=== PATIENT | female | born 1965 | race Caucasian/White ===

== ENCOUNTER 2023-04-05 07:28 | Outpatient (RCR) | payer OTHER, SELFPAY ==
[2023-04-05 14:28] LABS: Basophils Absolute Auto 0.1 10^3/uL (0.0-0.1); Basophils Percent Auto 1.3 % (0.2-2.0); Eosinophils Absolute Auto 0.2 10^3/uL (0.0-0.7); Eosinophils Percent Auto 2.3 % (0.9-7.0); Hematocrit 38.5 % (36.0-48.0); Hemoglobin 11.2 g/dL (12.0-16.0); Immature Granulocytes Abs Auto 0.02 10^3/uL (0.00-0.03); Immature Granulocytes Pct Auto 0.3 % (0.0-0.5); Lymphocytes Absolute Auto 2.2 10^3/uL (1.2-3.8); Lymphocytes Percent Auto 32.1 % (20.5-60.0); Mean Corpuscular HGB Conc 29.1 g/dL (29.9-35.2); Mean Corpuscular Volume 75.5 fL (81.0-99.0); Mean Platelet Volume 12.2 fL (9.5-13.5); Monocytes Absolute Auto 0.8 10^3/uL (0.3-0.8); Monocytes Percent Auto 12.2 % (1.7-12.0); Neutrophils Absolute Auto 3.6 10^3/uL (1.4-6.5); Neutrophils Percent Auto 51.8 % (43.0-75.0); Platelet Count 285 10^3/uL (150-450); Red Cell Distribution Width 18.8 % (11.0-15.0); White Blood Count 6.9 10^3/uL (4.0-11.0)
[2023-04-05 15:14] LABS: Percent Iron Saturation 9.8 %
== END 2023-04-20 23:59 | disposition home or self-care (01) ==
LOC: INF 07:28
PROVIDERS: PCP Family Medicine; Visit Provider Internal Medicine Hematology & Oncology
DX: D50.9 Iron deficiency anemia, unspecified (principal); K90.9 Intestinal malabsorption, unspecified
CPT/HCPCS: 36415; 82728; 83540; 83550; 85025; G0463

== ENCOUNTER 2023-06-09 07:32 | Outpatient (RCR) | payer OTHER, SELFPAY ==
[2023-05-27 10:20] LABS: Basophils Absolute Auto 0.1 10^3/uL (0.0-0.1); Basophils Percent Auto 1.4 % (0.2-2.0); Eosinophils Absolute Auto 0.2 10^3/uL (0.0-0.7); Eosinophils Percent Auto 3.4 % (0.9-7.0); Hematocrit 38.4 % (36.0-48.0); Hemoglobin 11.6 g/dL (12.0-16.0); Immature Granulocytes Abs Auto 0.01 10^3/uL (0.00-0.03); Immature Granulocytes Pct Auto 0.2 % (0.0-0.5); Lymphocytes Absolute Auto 1.7 10^3/uL (1.2-3.8); Mean Corpuscular HGB Conc 30.2 g/dL (29.9-35.2); Mean Corpuscular Hemoglobin 23.6 pg (26.7-34.0); Mean Platelet Volume 12.6 fL (9.5-13.5); Monocytes Absolute Auto 0.5 10^3/uL (0.3-0.8); Monocytes Percent Auto 9.7 % (1.7-12.0); Neutrophils Percent Auto 54.3 % (43.0-75.0); Platelet Count 206 10^3/uL (150-450); Red Blood Count 4.92 10^6/uL (4.20-5.40); Red Cell Distribution Width 18.2 % (11.0-15.0); White Blood Count 5.6 10^3/uL (4.0-11.0)
[2023-05-27 11:13] LABS: Percent Iron Saturation 7.1 %
[2023-06-02 08:45] VITALS: BP 113/77; PULSE 71; RESP 18; TEMP 36.4; O2SAT 96
[2023-06-02] MEDS: FERUMOXYTOL 510 MG in 0.9 % SODIUM CHLORIDE 100 ML 234 MG IV (08:58)
--- NOTE | 2023-06-02 09:34 | PC.NURSE ---
Patient is here for feraheme infusion, she denies any complaints. Vitals obtained and stable, IV started in her right wrist with good blood return, she denies pain. Patient tolerated feraheme infusion well and denies any issues or concerns. She was discharged home ambulatory.
[2023-06-09 08:50] VITALS: BP 137/84; PULSE 86; RESP 18; TEMP 36.3; O2SAT 97
[2023-06-09] MEDS: FERUMOXYTOL 510 MG in 0.9 % SODIUM CHLORIDE 100 ML 234 MG IV (09:15)
--- NOTE | 2023-06-09 09:23 | PC.NURSE ---
0850 Arrival ambulatory with family, seated in chair 2. alert oriented. offers no complaints. IV initiated after 1 attempt per SALEEM Her and 2 attempt by myself, #24 RACF.
== END 2023-06-19 23:59 | disposition home or self-care (01) ==
LOC: INF 07:32
PROVIDERS: PCP Family Medicine; Visit Provider Internal Medicine Hematology & Oncology
DX: D50.9 Iron deficiency anemia, unspecified (principal); K90.9 Intestinal malabsorption, unspecified; I10 Essential (primary) hypertension; Z80.0 Family history of malignant neoplasm of digestive organs
CPT/HCPCS: 36415; 82728; 83540; 83550; 85025; 96365; G0463; Q0138

== ENCOUNTER 2023-06-28 13:59 | Outpatient (OUT) | payer OTHER, SELFPAY ==
--- OUTSIDE RECORDS SUMMARY | 2023-06-28 14:13 | XMS_ITS | CCD ---
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 Prasanth Walker Attending John Craft, Dr. Kellogg Referring Unavailable Jeanie Smith Unavailable JEANIE SMITH Referring Unavailable JEANIE SMITH Primary Care Unavailable JEANIE SMITH Referring Unavailable JEANIE SMITH Primary Care Unavailable JEANIE SMITH Referring Unavailable JEANIE SMITH Primary Care Unavailable JEANIE SMITH Primary Care Physician BENJAMIN AMBAR Primary Care Unavailable BENJAMIN AMBAR Referring Unavailable Real MADSEN Attending Unavailable BENJAMIN, AMBAR Primary Care Unavailable MESSI ORO Attending Unavailable Allergies Allergy Classification Reported Allergen(s) Allergy Type Date of Onset Reaction(s) Facility (1 source) No Alert Propensity to adverse reactions to drug 3 Dept. of Dermatology (1 source) No Known Medication Allergies; Translations: [No Known Medication Allergies] Propensity to adverse reactions (disorder) [facility] Repository Medications Current Medications Medication Drug Class(es) Dates Sig (Normalized) Sig (Original) lisinopril 30 mg oral tablet (5 sources) Angiotensin Converting Enzyme Inhibitor Start: 05-13-2023 lisinopril 30 mg Tab 15 mg = 0.5 tab(s), Oral, Daily, Refills(s) 0 Start Date: 05/13/23 Status: Ordered Lisinopril 30 MG 1/2 tablet once a day for 30 days Active methylPREDNISolone 4 mg oral tablet (1 source) Corticosteroid methylPREDNISolo ne 4 MG as directed Orally for 6 days Active valACYclovir 1000 mg oral tablet (1 source) Herpesvirus Nucleoside Analog DNA Polymerase Inhibitor, Herpes Simplex Virus Nucleoside Analog DNA Polymerase Inhibitor, Herpes Zoster Virus Nucleoside Analog DNA Polymerase Inhibitor take 1 tablet by mouth every eight hours valACYclovir HCl 1 GM 1 tablet Orally tid for 7 days Active (1 source) Problems Problem Classification Problem Date Documented Date Episodic/Chronic Allergic reactions (1 source) Dermatitis, unspecified Episodic Deficiency and other anemia (5 sources) Iron deficiency anemia; Translations: [Iron deficiency anemia, unspecified] Onset: 05-27-2023 Episodic Deficiency and other anemia (2 sources) Iron deficiency anemia, unspecified Episodic Essential hypertension (5 sources) Essential hypertension; Translations: [Essential (primary) hypertension] Chronic Menstrual disorders (1 source) Menorrhagia 05-27-2023 Chronic Other non-epithelial cancer of skin (2 sources) Basal cell carcinoma of skin of unspecified parts of face; Translations: [History of malignant basal cell neoplasm of skin] Onset: 10-26-2022 05-13-2023 Episodic Other nutritional; endocrine; and metabolic disorders (1 source) Body mass index 40+ - severely obese 05-27-2023 Chronic Other nutritional; endocrine; and metabolic disorders (1 source) Morbid obesity 05-27-2023 Chronic Other screening for suspected conditions (not mental disorders or infectious disease) (2 sources) Encounter for screening mammogram for malignant neoplasm of breast; Translations: [Encounter for screening mammogram for malignant neoplasm of breast] Onset: 04-20-2023 Episodic Other skin disorders (2 sources) Localized swelling, mass and lump, neck; Translations: [Localized swelling, mass and lump, neck] Onset: 04-20-2023 Episodic Viral infection (1 source) Zoster without complications Episodic Results Test Name Value Interpretation Reference Range Facil ity Consultation Noteon 06-06-19 Consultation Note [id number] .00TIFF Normal [facility] Consent for Procedure/Surger yon 05-31-2023 Consent for Procedure/Surgery [id number] .00TIFF [facility] Facesheeton 05-30-2023 Facesheet [id number] [facility] Ambulatory Visit Summaryon 0 05-27-2023 Ambulatory Visit Summary TEJA QUAN :1965 Visit Date:05/27/2023 Ambulatory Visit Instructions Your Diagnosis Iron deficiency anemia Your Care Team Attending Physician - MICKY EM, Real Wilkerson Primary Care Physician - SARAH EM, JEANIE Referring Physician - DR. AMBAR JOSEPH This Is Your Medications List Contact prescribing physician if questions or concerns lisinopril (lisinopril 30 mg Tab) Procedures Performed Colonoscopy (06/09/2018), Carpal tunnel release, Excision of basal cell carcinoma, Graft of skin. Discharge Vitals Heart Rate (Peripheral) 76 Respiratory Rate 16 Blood Pressure 116/78 Height 152.4 cm Height 60 in Weight 93.9 kg Weight 206.58 lb BMI 40.43 Medications What How Much When Instructions Unchanged lisinopril (lisinopril 30 mg Tab) 0.5 Tablets By Mouth Every day Contact prescribing physician if questions or concerns Medications and Immunizations Administered Not Given influenza virus vaccine, inactivated, Patient Refuses Allergies No Known Allergies No Known Medication Allergies Problems Ongoing - Any problem that you are currently receiving treatment for. BMI 40.0-44.9, adult Essential hypertension History of basal cell carcinoma Iron deficiency anemia Morbid obesity Historical - Any problem that you are no longer receiving treatment for. Menorrhagia Patient Survey You may receive a survey via text or e-mail asking about your office visit. Please share your experience with us by completing your survey. We appreciate your feedback and thank you for choosing us for your care. Normal [facility] MAMM SCREENING BILATERAL W C ripening room hand 04-20-2023 MAMM SCREENING BILATERAL W CAD MAMM SCREENING BILATERAL W CAD EXAM: MAMM SCREENING BILATERAL W CAD, 04/20/2023 7:45 AM CLINICAL INDICATIONS: Screening, Encounter for screening mammogram for malignant neoplasm of breast. COMPARISON: Mammograms dating back to 12/13/2018 TECHNIQUE: Bilateral digital tomosynthesis MLO and CC views of the breasts were obtained, with creation of synthetic 2D views. Computer aided detection was utilized. FINDINGS: There are scattered areas of fibroglandular density. There are no suspicious masses, calcifications, or areas of architectural distortions. IMPRESSION: No mammographic evidence of malignancy. BI-RADS: BI-RADS 1 - Negative Recommendation: Routine screening mammogram in 1 year. Finalized by Marissa Miller MD on 04/20/2023 11:28 AM 1 b MAMM [address] [facility] Physician Referralon 024 Physician Referral [id number] .00TIFF Normal [facility] Vital Signs Date Time Vital Sign Value Performing Clinician Facility 05-27-2023 13:14-0500 Blood Pressure Location [facility] [place] 05-27-2023 13:14-0500 Diastolic blood pressure 78 mm[Hg] QalendraL [facility] [place] 05-27-2023 13:14-0500 Heart rate 76 /min [facility] [place] 05-27-2023 13:14-0500 Respiratory rate 16 /min [facility] [place] 05-27-2023 13:14-0500 Systolic blood pressure 116 mm[Hg] [facility] 03-03-2023 11:00-0500 Body height 152.4 cm Jeanie Smith Other [facility] Other 03-03-2023 11:00-0500 Body mass index (BMI) [Ratio] 40.07 kg/m2 Jeanie Smith Other [facility] Other 03-03-2023 11:00-0500 Body weight 93.08 kg Jeanie Smith Other [facility] Other 03-03-2023 11:00-0500 Diastolic blood pressure 77 mm[Hg] Jeanie Smith Other [facility] Other 03-03-2023 11:00-0500 Systolic blood pressure 120 mm[Hg] Jeanie Smith Other [facility] Other 01-20-2023 14:00-0400 Body height 152.4 cm Jeanie Smith Other [facility] Other 01-20-2023 14:00-0400 Body mass index (BMI) [Ratio] 40.23 kg/m2 Jeanie Smith Other [facility] Other 01-20-2023 14:00-0400 Body weight 93.44 kg Jeanie Smith Other [facility] Other 01-20-2023 14:00-0400 Diastolic blood pressure 73 mm[Hg] Jeanie Smith Other [facility] Other 01-20-2023 14:00-0400 Systolic blood pressure 116 mm[Hg] Jeanie Smith Other [facility] Other 1965 23:00-0500 >na< Prasanth Walker Dept. of Dermato logy Encounters Encounter Date Encounter Type Care Provider Facility Start: 06-22-2023 End: 06-22-2023 ambulatory MESSI ORO Not Available Start: 05-27-2023 End: 05-28-2023 ambulatory AMBAR BENJAMIN Facility: [place] Start: 05-27-2023 End: 05-27-2023 Patient encounter procedure Real MADSEN [facility] Start: 04-20-2023 End: 04-21-[address] [facility] Start: 04-13-2023 End: 04-21-[address] [facility] Start: 04-08-2023 End: 04-08-2023 ambulatory Jeanie Smith Other [facility] Other Start: 04-08-2023 Telephone encounter Jeanie Smith [facility] Start: 04-05-2023 ambulatory AMBAR BENJAMIN Facility : [place] Start: 03-30-2023 End: 03-30-2023 ambulatory Jeanie Smith Other [facility] Other Start: 03-30-2023 Telephone encounter Jeanie Smith [facility] Start: 03-03-2023 End: 03-03-2023 ambulatory Jeanie Smith Other [facility] Other Start: 03-03-2023 Encounter for genera l adult medical examination without abnormal findings Jeanie Sarah [facility] Start: 03-03-2023 Periodic preventive med est patient 40-64yrs Jeanie Sarah [facility] Start: 01-20-2023 End: 01-20-2023 ambulatory Jeanie Smith Other [facility] Other Start: 01-20-2023 Office outpatient ne w 30 minutes Jeaniecharu Smith [facility] Start: 10-27-2022 Prasanth Walker [facility] of Dermatology Start: 10-26-[address] Prasanth Walker Facility:[id number] Procedures Date Procedure Procedure Detail Performing Clinician Start: 10-26-2022 Mohs micrographic h/ n/h/f/g 1st stage 5 blocks Prasanth Walker Start: 06-09-2018 Colonoscopy Real NI LL Decompression of med yaneth nerve Real MADSEN Excision of basal ce ll carcinoma Real MADSEN Comment on above: nose Skin graft material (substance) Real MADSEN Immunizations Immunization Date Immunization Notes Care Provider Umair nixon 1965 pneumococcal conjugate vaccine, 7 valent Prasanth Walker Dept. of Dermatology NEGATED: Highlighted row has not occurred!05-27-2023 influenza virus vaccine, unspecified formulation Real MADSEN [facility] [place] Payers Date Payer Category Payer Unknown [id number] 1965 Unknown [id number] 1965 Unknown [id number] 2.16.8 [id number] 1965 Unknown [id number] 2.16.8 [id number] 1965 Unknown [id number] 2.16.8 [id number] 1965 Unknown [id number] 2.16.8 [id number] 1965 Unknown [id number] 2.16.8 [id number] 1965 Unknown [id number] 2.16.84 [id number] Social History Date Type Detail Facility Start: 10-27-2022 Dept. of D ermatology Start: 1965 Sex Assigned At Female D ept[facility] of Dermatology Sex Assigned At [facility] Start: 05-27-2023 Tobacco smoking status Never s moked tobacco (finding) [facility] [place] Tobacco smoking status Never [facility] [place] Goals Date Patient Goal Desired Activity /State Functional Status Date Assessment Result Facility 05-27-2023 Functional Status N/A [facility] Clinical Notes 01-20-2023 to 05-27-2023 Note Date & Type Note Facility 05-27-2023 Note Chief Complaint consultation for anemia HPI Staff 58 year old female presents on consultation from Dr. Joseph for iron deficiency anemia. Labs completed 03/25 with HGB 5.7, HCT 11.4, ferritin 18. Denies abdominal or rectal pain. No rectal bleeding or change in bowel habits. Denies nausea or vomiting. No unexplained weight loss. Denies dizziness, lightheadedness or SOB. Last colonoscopy completed 2019-normal. Never had EGD in the past. No known family history of colon cancer. History of Present Illness 58 yo female with h/o htn, referred for iron deficiency anemia; patient with hb 5.7 in March with low iron; h/o menorrhagia, but not for some time, irregular periods; denies change in bowel habits or blood in stools, no abd complaints; last colonoscopy 2018 wnl; no abdominal operations; no asa or NSAID use; no GERD, dysphagia or early satiety; no h/o ulcer disease or melena; no FMHx of GI malignancy or IBD. no tobacco use. Review of Systems PHQ Score Initial Depression Screen Score: 0 SCORE ROS - Provider Constitutional: no fever, no sweats, no weight loss. Eyes: no glasses, no blurred vision, no visual loss. ENMT: no dentures, no hoarseness, no swallowing difficulties, no hearing loss, no ear infection(s), no nose bleeds. Cardiovascular: normal blood pressure, no chest pain, regular heartbeat, no heart murmur. Respiratory: no shortness of breath, no cough, no asthma, no wheezing. Gastrointestinal: no nausea, no vomiting, no diarrhea, no constipation, no blood in stool, no change in bowel habits, no abdominal pain, no hepatitis. Genitourinary: no kidney stones, no urine infection, no dysuria. Musculoskeletal: no pain, no weakness. Skin: no changing moles, no rash, no skin lumps. Neurologic: no seizures, no epilepsy, no headache. Psychiatric: no emotional or psychiatric problem. Heme/Lymph: no bleeding problems, no anemia, no blood clots, no transfusions. Allergy/Immunologic: no swollen lymph nodes/glands, no IV drug abuse. Other: Additional ROS info: Except as noted in the above Review of Systems and in the History of Present Illness, all other systems have been reviewed and are negative or noncontributory. Physical Exam Vitals & Measurements HR: 76(Peripheral) RR: 16 BP: 116/78 HT: 60 in HT: 152.4 cm WT: 93.9 kg WT: 206.58 lb BMI: 40.43 HEENT: normal conjunctiva, sclera clear, no scleral icterus, EOM intact, PERRLA, oral mucosa moist without lesions. Neck: trachea midline, no mass, symmetric, no thyromegaly or nodules, no adenopathy Respiratory: lungs CTA, respirations non labored. Cardiovascular: regular rate and rhythm, no murmur, no pedal edema or varicosities. Gastrointestinal: obese, soft, non distended, no tenderness, no masses, no palpable hernias, diastasis recti no, no hepatosplenomegaly; normal bs Lymphatic: no cervical adenopathy, no supraclavicular adenopathy. Musculoskeletal: normal gait, digits and nails without infection, nodes, cyanosis, clubbing. Skin: no rashes, no lesions, no ulcers, no subcutaneous nodules, induration. Psychiatric/Neuro: oriented to time, place, person, judgement normal, affect appropriate for age, insight intact, no focal deficits. Tests: labs reviewed review of old records completed , Discussed surgical options, risks, and possible complications with patient. Assessment/Plan 1. Iron deficiency anemia (D50.9: Iron deficiency anemia, unspecified) plan EGD and colonoscopy with anesthesia for further evaluation, informed consent obtained. Follow-up No qualifying data available Problem List/Past Medical History Ongoing BMI 40.0-44.9, adult Essential hypertension History of basal cell carcinoma Iron deficiency anemia Morbid obesity Historical Menorrhagia Procedure/Surgical History Colonoscopy (06/09/2018), Carpal tunnel release, Excision of basal cell carcinoma, Graft of skin. Medications lisinopril 30 mg Tab, 15 mg= 0.5 tab(s), Oral, Daily Allergies No Known Allergies No Known Medication Allergies Social History Alcohol - Denies Alcohol Use, 05/27/2023 Substance Abuse - Denies Substance Abuse, 05/27/2023 Tobacco Never (less than 100 in lifetime) Tobacco Use:. Never Smokeless Tobacco Use:., 05/27/2023 Family History Aneurysm: Mother and Brother. Immunizations Vaccine Date Status Comments influenza virus vaccine, inactivated - Not Given Patient Refuses [facility] Comment on above: Result Comment: Elec tronically Signed By: MICKY EM, Real Bentley\Date and Time Signed: 05/27/23 13:44 EST 04-21-2023 Note US SOFT TISS HEAD NE CK Procedure: US SOFT TISS HEAD NECK; Date of procedure: 04/20/2023 Reason for Exam: Palpable mass of neck; Comparison: None Technique: Real time sonography of the soft tissues of the neck in the region of concern performed. FINDINGS: Real-time sonographic evaluation reveals concern demonstrates a nonenlarged morphologically normal-appearing lymph node measuring 0.7 x 0.4 x 0.7 cm. IMPRESSION: Nonenlarged lymph node noted in the region of concern. No focal fluid collection. Finalized by Real Marina MD on 04/21/2023 9:[address] [facility] 03-30-2023 Evaluation note Encounter Date Diagnosis Assessment Notes Mar, Iron deficiency anemia, unspecified iron deficiency anemia type (ICD-10 - D50.9) [facility] Other [id number] Evaluation note* Encounter Date Diagnosis Assessment Notes Treatment Notes Treatment Clinical Notes Feb, Well adult exam (ICD-10 - Z00.00) We have discussed the necessity of following up with PCP regularly as well as specialists, as needed. Discussed F/U with dentistry and optometry at least yearly. Discussed all preventative measures/ cancer screenings as applicable to this patient. Emphasized the importance of a reduced fat, low carb diet to promote heart health and controlled blood sugars. Reviewed social history and ensured patient is safe within the home today. Pt denies any abuse of alcohol, nicotine, caffeine or recreational drugs. I have ensured patient is of stable mental and physical health today. We have discussed appropriate F/U schedule as well as blood work and vaccinations that apply. All questions answered and patient is sent home pleased, without concerns. Feb, Screening mammogram, encounter for (ICD-10 - Z12.31) Feb, Essential (primary) hypertension (ICD-10 - I10) GOAL: Maintain BP < 140/90. STATUS: achieved. TIME FRAME: Lifetime goal. Barriers: Non- identifed. Continue current regimen and a low Na+ diet. Regular CV exercise also encouraged. Feb, Iron deficiency anemia, unspecified iron deficiency anemia type (ICD-10 - D50.9) Pt historically unable to tolerate oral iron. Discussed potential heme referral for IV iron if her labs indicate low findings. Still has monthly periods. Encouraged regular followup w [employer] for assessment of this. 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 Agrees to US to assess LN v. salivary gland etiology. [facility] Other [id number] Evaluation note* Encounter Date Diagnosis Assessment Notes Treatment Notes Treatment Clinical Notes Jan, Varicella zoster (ICD-10 - B02.9) Discussed differential. Patient agrees to treatment for both shingles and possible allergic reaction. We agreed that the likelihood of shingles is lower however without renal issues, it would be safe to take Valtrex just to alleviate possible causes. Jan, Dermatitis (ICD-10 - L30.9) Patient understands to finish steroid pack as prescribed. Patient will call if problem persists. [facility] Other Evaluation + Plan note No data available for this section [facility] [place] Evaluation noteN/ADept. of Dermatology Evaluation noteNo [employer] [employer] Other History general Narrative - Reported* Type Description Date Medical History HTN [facility] Other Hospital Discharge instructions No data available for this section [facility] [place] Progress note No data available for this section [facility] [place] Reason for referral (narrative)* Name Reason for referral NA NA Dept. of Dermatology Summary Purpose Family History No Family History Records FoundNo Family History Records Found No data available for this section No Family History Records FoundNo Family History Records Found Advance Directives No Advanced Directives Records FoundNo Advanced Directives Records FoundNo Advanced Directives Records FoundNo Advanced Directives Records Found Reason for Referral Reason *FU 04/06 Dr. Maty sal - hx of iron def anemia, recent labs scanned in chart. had IV iron in the past. Diagnosis 1 Iron deficiency anem ia, unspecified iron deficiency anemia type (D50.9) Referral Organization [facility] guero Referring Provider First Name Jeanie Referring Provider Last Name Sarah Referring Provider Specialty Family [facility] cine Referred Organization [facility] Referred Provider AMBAR JOSEPH Referred Address [address] [place], [place],[address] Referred Provider Specialty Hematology Referral Priority Routine General Notes Mae Pendleton 07:51:36 AM >received today, notes locked, attachments made, referral faxed. Clinical Notes p: [phone] f: [phone] Additional Source Comments INFORMATION SOURCE (unrecogn ized section and content) DATE CREATED AUTHOR 10/28/2022 [facility] DATE CREATED AUTHOR AUTHOR'S ORGANIZ ATION 04/24/2023 [facility] DATE CREATED AUTHOR AUTHOR'S ORGANIZ ATION 06/07/2023 [facility] DATE CREATED AUTHOR AUTHOR'S ORGANIZ ATION 06/23/2023 [facility] dical Specialists EPIC REASON FOR VISIT (unrecogniz ed section and content) [facility] team informatio n (unrecognized section and content) Personnel Name: JEANIE SMITH MD Address: Address: [address] [place] [address] FOR RECORDS PERTAINING TO PATIENTS WHO ARE OR HAVE BEEN ENROLLED IN A CHEMICAL DEPENDENCY/SUBSTANCEABUSE PROGRAM, SOME INFORMATION MAY BE OMITTED. This clinical summary was aggregated from multiple sources. Caution should be exercised in using it in the provision of clinical care. This summary normalizes information from multiple sources, and as a consequence, information in this document may materially change the coding, format and clinical context of patient data. In addition, data may be omitted in some cases. CLINICAL DECISIONS SHOULD BE BASED ON THE PRIMARY CLINICAL RECORDS. [facility]. provides no warranty or guarantee of the accuracy or completeness of information in this document.
== END 2023-06-28 14:00 | disposition home or self-care (01) ==
LOC: PST 13:59
PROVIDERS: PCP Family Medicine; Visit Provider Surgery
DX: Z01.818 Encounter for other preprocedural examination (principal); D50.9 Iron deficiency anemia, unspecified

== ENCOUNTER 2023-07-06 08:47 | Day surgery (SDC) | payer OTHER, SELFPAY ==
--- NOTE | 2023-07-06 | OP_ITS ---
OPERATION DATE: 07/06/2023 PREOPERATIVE DIAGNOSIS: Iron deficiency anemia. POSTOPERATIVE DIAGNOSIS: Normal EGD and colonoscopy. PROCEDURE: EGD, colonoscopy to cecum. SURGEON: Real Weeks M.D. ANESTHESIA: Monitored anesthesia care. ESTIMATED BLOOD LOSS: Zero. INDICATIONS AND CONSENT: Patient is a 58-year-old female presents for evaluation of iron deficiency anemia. Indications, risks, benefits, alternatives of proceeding with EGD and colonoscopy were explained extensively to the patient, including the risks of bleeding, aspiration, esophageal/gastric/duodenal or colonic perforation or anesthetic complications. All of her questions were answered. Informed consent was obtained. PROCEDURE: Patient brought to the operating room, placed in the left lateral decubitus position. Monitored anesthesia care was provided. Bite block was placed in the patient?s mouth. Scope was inserted into the oropharynx. Under direct visualization, it was advanced into the esophagus, past the cricopharyngeus, down to the stomach. The stomach was insufflated with air. The pylorus was traversed down to the descending portion of the duodenum. There was no evidence of duodenitis or ulceration. There was no scarring within the pyloric channel. Scope was pulled back into the stomach and retroflexed. There was no significant hiatal hernia. The GE junction was noted at approximately 38 cm. There was no distal esophagitis or Vizcaino?s changes. Remainder of the esophagus was unremarkable. The scope was then withdrawn. Patient tolerated procedure well, was then positioned for colonoscopy. Rectal exam was performed, which showed no masses or blood. The scope was then inserted into the anal canal. Under direct visualization, it was advanced. It was advanced to the cecum where cecal markings were clearly identified. There was noted to be a good prep. Upon withdrawal of the scope, mucosal surfaces were carefully examined. There were no mass lesions or polyps. No inflammatory changes or ulcerations. No significant diverticulosis. The scope was retroflexed in the anal canal. There was no significant hemorrhoidal disease. The scope was then withdrawn. The patient tolerated procedure well, was sent to recovery room in good condition. Follow up colonoscopy should be in 10 years for screening. CC: Jeanie Lloyd M.D. LINDA
--- OUTSIDE RECORDS SUMMARY | 2023-07-06 08:52 | XMS_ITS | CCD ---
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 Name Role Phone Prasanth Walker Unavailable Unavailable [...] Medication Allergies] Propensity to adverse reactions (disorder) [facility] Repository Medications Current Medications Medication [...] Facil ity Consultation Noteon 06-06-19 Consultation Note [id number]#1 .00TIFF Normal [facility] Consent for Procedure/Surger yon 05-31-2023 Consent for Procedure/Surgery [id number]#1 .00TIFF [facility] Facesheeton 05-30-2023 Facesheet [id number]# 1.00TIFF [facility] Ambulatory Visit Summaryon 0 05-27-2023 Ambulatory Visit [...] for choosing us for your care. 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 stamping 04-20-2023 MAMM SCREENING BILATERAL W CAD MAMM [...] AM 1 b MAMM 1 YR Normal [facility] Physician Referralon 024 Physician Referral [id number]#1 .00TIFF Normal [facility] Vital Signs Date Time Vital Sign Value Performing Clinician Facility 05-27-2023 13:14-0500 Blood Pressure Location [employer] [facility] [place] 05-27-2023 13:14-0500 Diastolic blood pressure 78 mm[Hg] [employer] [facility] [place] 05-27-2023 13:14-0500 Heart rate 76 /min [employer] [facility] [place] 05-27-2023 13:14-0500 Respiratory rate 16 /min [employer] [facility] [place] 05-27-2023 13:14-0500 Systolic blood pressure 116 mm[Hg] [employer] [facility] 03-03-2023 11:00-0500 Body height 152.4 cm Jeanie Smith Other [employer] Other 03-03-2023 11:00-0500 Body mass index (BMI) [Ratio] 40.07 kg/m2 Jeanie Smith Other [employer] Other 03-03-2023 11:00-0500 Body weight 93.08 kg Jeanie Smith Other [employer] Other 03-03-2023 11:00-0500 Diastolic blood pressure 77 mm[Hg] Jeanie Smith Other [employer] Other 03-03-2023 11:00-0500 Systolic blood pressure 120 mm[Hg] Jeanie Smith Other [employer] Other 01-20-2023 14:00-0400 Body height 152.4 cm Jeanie Smith Other [employer] Other 01-20-2023 14:00-0400 Body mass index (BMI) [Ratio] 40.23 kg/m2 Jeanie Smith Other [employer] Other 01-20-2023 14:00-0400 Body weight 93.44 kg Jeanie Smith Other [employer] Other 01-20-2023 14:00-0400 Diastolic blood pressure 73 mm[Hg] Jeanie Smith Other [employer] Other 01-20-2023 14:00-0400 Systolic blood pressure 116 mm[Hg] Jeanie Smith Other [employer] Other 1965 23:00-0500 >na< Prasanth Walker Dept. of Dermato logy Encounters Encounter Date Encounter Type Care Provider Facility Start: 06-22-2023 End: 06-22-2023 ambulatory MESSI ORO Not Available Start: 05-27-2023 End: 05-28-2023 ambulatory AMBAR BENJAMIN Facility: [place] Start: 05-27-2023 End: 05-27-2023 Patient encounter procedure Real MADSEN [facility] Start: 04-20-2023 End: 04-21-2023 ambulatory JEANIE SMITH [facility] Start: 04-13-2023 End: 04-21-2023 ambulatory JEANIE SMITH [facility] Start: 04-08-2023 End: 04-08-2023 ambulatory Jeanie Smith Other [employer] Other Start: 04-08-2023 Telephone encounter Jeanie Smith [facility] Start: 04-05-2023 ambulatory AMBAR BENJAMIN Facility : [facility] Start: 03-30-2023 End: 03-30-2023 ambulatory Jeanie Smith Other [employer] Other Start: 03-30-2023 Telephone encounter Jeanie Smith [facility] Start: 03-03-2023 End: 03-03-2023 ambulatory Jeanie Smith Other [employer] Other Start: 03-03-2023 Encounter for genera l adult medical examination without abnormal findings Jeanie Sarah [facility] Start: 03-03-2023 Periodic preventive med est patient 40-64yrs Jeanie Sarah [facility] Start: 01-20-2023 End: 01-20-2023 ambulatory Jeanie Smith Other [employer] Other Start: 01-20-2023 Office outpatient ne w 30 minutes Jeaniecharu Smith [facility] Start: 10-27-2022 Prasanth Walker Dept. [...] vaccine, unspecified formulation Real MADSEN [facility] [place] Payers Date Payer Category Payer Unknown [id number] 1965 Unknown [id number] [id number]. [id number] 1965 Unknown [id number] 2.16.8 [id number] 1965 Unknown [id number] 2.16.8 [id number] 1965 Unknown [id number] 2.16.8 [id number] 1965 Unknown [id number] 2.16.8 [id number] 1965 Unknown [id number] 2.16.8 [id number] 1965 Unknown [id number] 2.16.84 [id number] Social History Date Type Detail Facility Start: 10-27-2022 Dept. of D ermatology Start: 1965 Sex Assigned At Female D ept. of Dermatology Sex Assigned At [facility] Start: 05-27-2023 Tobacco smoking status Never s moked tobacco (finding) [facility] [place] Tobacco smoking status Never Gener [facility] [place] Goals Date Patient Goal Desired Activity /State Functional Status Date Assessment Result Facility 05-27-2023 Functional Status N/A [facility] Clinical Notes 01-20-2023 to 05-27-2023 Note Date [...] vaccine, inactivated - Not Given Patient Refuses [facility] Comment on above: Result Comment: [...] Real Marina MD on 04/21/2023 9:54 AM [facility] 03-30-2023 Evaluation note Encounter Date Diagnosis Assessment Notes Mar, Iron deficiency anemia, unspecified iron deficiency anemia type (ICD-10 - D50.9) [employer] Other [id number] Evaluation note* Encounter Date Diagnosis Assessment Notes [...] has monthly periods. 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 It has been several years since she was at [facility] in [place] Feb, Palpable mass of neck (ICD-10 - R22.1) Notes change since recent dental procedure. Agrees to US to assess LN v. salivary gland etiology. [employer] Other [id number] Evaluation note* Encounter Date Diagnosis Assessment Notes [...] prescribed. Patient will call if problem persists. [employer] Other Evaluation + Plan note No data available for this section [facility] [place] Evaluation noteN/ADept. of Dermatology Evaluation noteNo InformationNort [email or web address] Other History general Narrative - Reported* Type Description Date Medical History HTN [employer] Other Hospital Discharge instructions No data available for this section [facility] [place] Progress note No data available for this section [facility] [place] Reason for referral (narrative)* Name Reason for [...] iron deficiency anemia type (D50.9) Referral Organization formerly [facility] guero Referring Provider First Name Jeanie Referring Provider Last Name Sarah Referring Provider Specialty Family [facility] cine Referred Organization [facility] Referred Provider AMBAR JOSEPH Referred Address [address], [place],[address] Referred Provider Specialty Hematology Referral Priority Routine General Notes Mae Pendleton 07:51:36 AM >received today, notes locked, attachments made, referral faxed. Clinical Notes p: [phone] f: [phone] Additional Source Comments INFORMATION SOURCE (unrecogn ized section and content) DATE CREATED AUTHOR 10/28/2022 [facility] DATE CREATED AUTHOR AUTHOR'S ORGANIZ ATION 04/24/2023 [facility] DATE CREATED AUTHOR AUTHOR'S ORGANIZ ATION 06/07/2023 [facility] DATE CREATED AUTHOR AUTHOR'S ORGANIZ ATION 06/23/2023 [facility] dical Specialists EPIC REASON FOR VISIT (unrecogniz ed section and content) [facility] team informatio n (unrecognized section and content) Personnel Name: JEANIE SMITH MD Address: Address: [address] [place] [address] FOR RECORDS PERTAINING TO PATIENTS WHO ARE [...] BE BASED ON THE PRIMARY CLINICAL RECORDS. [facility]. provides no warranty or guarantee of the accuracy or completeness of information in this document.
[2023-07-06 09:00] VITALS: BP 123/69; PULSE 74; TEMP 35.5; O2SAT 97; BMI 39.0
[2023-07-06 09:21] LABS: HCG Qualitative NEGATIVE (NEGATIVE)
[2023-07-06] MEDS: LACTATED RINGER'S SOLUTION 1,000 ML 50 ML IV (09:29)
[2023-07-06 11:47] VITALS: BP 113/73; PULSE 60; O2SAT 100
[2023-07-06 12:10] VITALS: BP 132/76; PULSE 79; O2SAT 98
== END 2023-07-06 12:20 | disposition home or self-care (01) ==
PROVIDERS: PCP Family Medicine; Visit Provider Surgery
PROC: (CPT 813; principal; 2023-07-06 09:45)
DX: D50.9 Iron deficiency anemia, unspecified (principal); I10 Essential (primary) hypertension; E66.01 Morbid (severe) obesity due to excess calories; Z68.41 Body mass index [BMI] 40.0-44.9, adult
CPT/HCPCS: 43235; 45378; 36415; 84703; J2704

== ENCOUNTER 2023-07-11 10:01 | Outpatient (OUT) | payer OTHER, SELFPAY ==
[2023-07-11 10:22] LABS: Basophils Absolute Auto 0.1 10^3/uL (0.0-0.1); Basophils Percent Auto 1.3 % (0.2-2.0); Eosinophils Absolute Auto 0.2 10^3/uL (0.0-0.7); Hematocrit 40.7 % (36.0-48.0); Hemoglobin 13.2 g/dL (12.0-16.0); Immature Granulocytes Abs Auto 0.01 10^3/uL (0.00-0.03); Immature Granulocytes Pct Auto 0.2 % (0.0-0.5); Lymphocytes Absolute Auto 1.8 10^3/uL (1.2-3.8); Lymphocytes Percent Auto 38.4 % (20.5-60.0); Mean Corpuscular HGB Conc 32.4 g/dL (29.9-35.2); Mean Corpuscular Hemoglobin 26.8 pg (26.7-34.0); Mean Corpuscular Volume 82.6 fL (81.0-99.0); Mean Platelet Volume 12.3 fL (9.5-13.5); Monocytes Absolute Auto 0.4 10^3/uL (0.3-0.8); Monocytes Percent Auto 7.6 % (1.7-12.0); Neutrophils Absolute Auto 2.3 10^3/uL (1.4-6.5); Neutrophils Percent Auto 48.5 % (43.0-75.0); Platelet Count 182 10^3/uL (150-450); Red Blood Count 4.93 10^6/uL (4.20-5.40); Red Cell Distribution Width 19.4 % (11.0-15.0); White Blood Count 4.7 10^3/uL (4.0-11.0)
[2023-07-11 10:41] LABS: Anion Gap 11.9; BUN Creatinine Ratio 12.7; Calcium 9.3 mg/dL (8.5-10.1); Carbon Dioxide 27.4 mmol/L (21.0-32.0); Chloride 107 mmol/L (98-107); Estimated GFR (African America >60 (>=60); Estimated GFR (Non-African Ame >60 (>=60); Glucose 96 mg/dL (74-106); Potassium 4.3 mmol/L (3.5-5.1); Sodium 142 mmol/L (136-145)
[2023-07-11 11:22] LABS: Percent Iron Saturation 43.5 %
== END 2023-07-11 10:02 | disposition home or self-care (01) ==
LOC: LAB 10:03
PROVIDERS: PCP Family Medicine; Visit Provider Internal Medicine Hematology & Oncology
DX: D50.9 Iron deficiency anemia, unspecified (principal); K90.9 Intestinal malabsorption, unspecified
CPT/HCPCS: 36415; 80048; 82728; 83540; 83550; 85025

== ENCOUNTER 2023-07-12 07:31 | Outpatient (RCR) | payer OTHER, SELFPAY | END 2023-07-19 23:59 | disposition home or self-care (01) | LOC: INF 07:31 | PROVIDERS: PCP Family Medicine; Visit Provider Internal Medicine Hematology & Oncology | DX: D50.9 Iron deficiency anemia, unspecified (principal); K90.9 Intestinal malabsorption, unspecified | CPT/HCPCS: G0463 ==

== ENCOUNTER 2023-07-14 14:39 | Outpatient (OUT) | payer OTHER, SELFPAY ==
--- NOTE | 2023-07-14 14:42 | US_ITS ---
The [address] [address] Patient Name: TEJA QUAN MRN: [id number] date: 1965 Sex: F Assigned Patient Location: US Current Patient Location: US Accession/Order Number: [id number] Exam Date: 07/14/2023 14:45 Report Date: 07/14/2023 15:44 At the request of: MESSI ORO Procedure: US pelvis w/ transvaginal EXAMINATION: US pelvis w/ transvaginal HISTORY: Polycystic Ovarian Syndrome E28.2 COMPARISON: No relevant comparison available. TECHNIQUE: Transabdominal and/or transvaginal sonographic examination was performed as indicated by examination type. FINDINGS: UTERUS: Normal size and appearance. 1.3 cm nabothian cysts within the cervix. Uterus size: 7.5 x 4.4 x 5.4 cm ENDOMETRIUM: Normal homogeneous appearance. Endometrial thickness: 7 mm RIGHT OVARY: Normal size and appearance. Duplex Doppler demonstrates normal waveform and flow; resistive index 0.5. Ovary size: 2.1 x 3.0 x 2.67 m LEFT OVARY: Normal size and appearance. Blood flow present within ovary on color Doppler. Ovary size: 1.8 x 2.2 x 2.0 cm CUL-DE-SAC: Unremarkable. No significant free fluid. BLADDER: Unremarkable. OTHER: None. US/US pelvis w/ transvaginal IMPRESSION: 1. No increased number of ovarian follicles to suggest polycystic ovarian syndrome. Electronically authenticated by: JHON BEYER Date: 07/14/2023 15:44
== END 2023-07-14 14:40 | disposition home or self-care (01) ==
LOC: US 14:39
PROVIDERS: PCP Family Medicine; Visit Provider Obstetrics & Gynecology
DX: E28.2 Polycystic ovarian syndrome (principal)
CPT/HCPCS: 76830; 76856

== ENCOUNTER 2023-07-25 20:10 | Outpatient (REF) | payer OTHER, SELFPAY ==
--- OUTSIDE RECORDS SUMMARY | 2023-07-25 20:17 | XMS_ITS | CCD ---
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 Prasanth Walker Attending John Craft, Dr. Kellogg Referring Unavailable Jeanie Smith Unavailable JEANIE SMITH Referring Unavailable JEANIE SMITH Primary Care Unavailable JEANIE SMITH Referring Unavailable JEANIE SMITH Primary Care Unavailable JEANIE SMITH Referring Unavailable JEANIE SMITH Primary Care Unavailable JEANIE SMITH Primary Care Physician [phone] MESSI ORO Attending Unavailable BENJAMIN, AMBAR Primary Care Unavailable Real MADSEN Attending Unavailable BENJAMIN, AMBAR Referring Unavailable BENJAMIN, AMBAR Primary Care Unavailable Real MADSEN Attending Unavailable Allergies Allergy Classification Reported Allergen(s) Allergy Type Date of Onset Reaction(s) Facility (1 source) No Alert Propensity to adverse reactions to drug 3 Dept. of Dermatology (1 source) No Known Medication Allergies; Translations: [No Known Medication Allergies] Propensity to adverse reactions (disorder) [facility] Repository Medications Current Medications Medication Drug Class(es) [...] Results Test Name Value Interpretation Reference Range Facility Consultation Noteon 07-13-19 Consultation Note [id number] #1.00TIFF Normal [facility] Outside Colonoscopyon 2023 Outside Colonoscopy [id number] #1.00TIFF Normal [facility] Reminderson 07-07-2023 Reminders - From: Samaria Cortez LPN To: GSN - Clinical; Sent: 07/07/2023 09:42:12 EDT Show up: 06/04/2033 07:00:00 EDT Subject: colonoscopy recall Due Date/Time: 07/05/2033 07:00:00 EDT Reminder/Recall Patient due for screening colonoscopy 07/05/2033. Normal [facility] Lab Reportson 07-06-2023 Lab Reports [id number] #1.00TIFF Normal [facility] Insurance Correspondenceon 0 06-23-2023 Insurance Correspondence [id number]#1.00TIFF [facility] Consultation Noteon 06-06-19 Consultation Note [id number] #1.00TIFF [facility] Consent for Procedure/Surger yon 05-31-2023 Consent for Procedure/Surgery [id number] #1.00TIFF [facility] Facesheeton 05-30-2023 Facesheet [id number]#1.00TIFF [facility] Ambulatory Visit Summaryon 0 05-27-2023 Ambulatory Visit Summary TEJA QUAN :1965 Visit Date:05/27/2023 Ambulatory Visit Instructions Your Diagnosis Iron deficiency anemia Your Care Team Attending Physician - TENA EM, Real Wilkerson Primary Care Physician - [...] for choosing us for your care. 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 04-20-2023 MAMM SCREENING BILATERAL W CAD MAMM [...] AM 1 b MAMM 1 YR Normal [facility] Physician Referralon 024 Physician Referral [id number] #1.00TIFF Normal [facility] Vital Signs Date Time Vital Sign Value Performing Clinician Facility 05-27-2023 13:14-0500 Blood Pressure Location Real MADSEN [facility] 05-27-2023 13:14-0500 Diastolic blood pressure 78 mm[Hg] Rela MADSEN [facility] 05-27-2023 13:14-0500 Heart rate 76 /min Real MADSEN [facility] 05-27-2023 13:14-0500 Respiratory rate 16 /min Real MADSEN [facility] 05-27-2023 13:14-0500 Systolic blood pressure 116 mm[Hg] Real BUENROSTROFrancisca [facility] [place] 03-03-2023 11:00-0500 Body height 152.4 cm Jeanie Smith Other [employer] Other 03-03-2023 11:00-0500 Body mass index (BMI) [Ratio] 40.07 kg/m2 Jeanie Smith Other [employer] Other 03-03-2023 11:00-0500 Body weight 93.08 kg Jeanie Smith Other [employer] Other 03-03-2023 11:00-0500 Diastolic blood pressure 77 mm[Hg] Jeanie Smith Other [employer] Other 03-03-2023 11:00-0500 Systolic blood pressure 120 mm[Hg] Jeanie Smith Other [employer] Other 01-20-2023 14:00-0400 Body height 152.4 cm Jeanie Smith Other [employer] Other 01-20-2023 14:00-0400 Body mass index (BMI) [Ratio] 40.23 kg/m2 Jeanie Smith Other [employer] Other 01-20-2023 14:00-0400 Body weight 93.44 kg Jeanie Smith Other [employer] Other 01-20-2023 14:00-0400 Diastolic blood pressure 73 mm[Hg] Jeanie Smtih Other [employer] Other 01-20-2023 14:00-0400 Systolic blood pressure 116 mm[Hg] Jeanie Smith Other [employer] Other 1965 23:00-0500 >na< Prasanth Walker Dept. of Dermato logy Encounters Encounter Date Encounter Type Care Provider Facility Start: 07-06-2023 End: 07-07-2023 ambulatory Real MADSEN Facility::[id number] Start: 06-22-2023 End: 06-22-2023 ambulatory MESSI ORO Not Available Start: 05-27-2023 End: 05-28-2023 ambulatory Real R NILL Facility: [facility] Start: 05-27-2023 End: 05-27-2023 Patient encounter procedure Real Wilkerson TENA [facility] [place] Start: 04-20-2023 End: 04-21-2023 ambulatory JEANIE SMITH [facility] Start: 04-13-2023 End: 04-21-2023 ambulatory JEANIE SMITH [facility] Start: 04-08-2023 End: 04-08-2023 ambulatory Jeanie Smith Other [employer] Other Start: 04-08-2023 Telephone encounter Jeanie Smith [facility] Start: 04-05-2023 ambulatory AMBAR BENJAMIN Facility : [place] Start: 03-30-2023 End: 03-30-2023 ambulatory Jeanie Smith Other [employer] Other Start: 03-30-2023 Telephone encounter Jeanie Smith [facility] Start: 03-03-2023 End: 03-03-2023 ambulatory Jeanie Smith Other [employer] Other Start: 03-03-2023 Encounter for genera l adult medical examination without abnormal findings Jeanie Smith [facility] Start: 03-03-2023 Periodic preventive med est patient 40-64yrs Jeanie Smith [facility] Start: 01-20-2023 End: 01-20-2023 ambulatory Jeanie Smith Other [facility] [employer] Other Start: 01-20-2023 Office outpatient ne w 30 minutes Jeanie Smith [facility] Start: 10-27-2022 Prasanth Walker Dept. [...] Immunizations Immunization Date Immunization Notes Care Provider Fa [facility] 1965 pneumococcal conjugate vaccine, 7 valent Prasanth Walker Dept. of Dermatology NEGATED: Highlighted row has not occurred!05-27-2023 influenza virus vaccine, unspecified formulation Real MADSEN [facility] [place] Payers Date Payer Category Payer Unknown [id number] 1965 Unknown [id number] 2.16. [id number] 1965 Unknown [id number] 2.16.8 [id number] 1965 Unknown [id number] 2.16.8 [id number] 1965 Unknown [id number] 2.16.8 [id number] 1965 Unknown [id number] 2.16.8 [id number] 1965 Unknown [id number] 2.16.84 [id number] 1965 Unknown [id number] 2.16.8 [id number] 1965 Unknown [id number] 2.16.8 [id number] Social History Date Type Detail Facility Start: 10-27-2022 Dept. of D ermatology Start: 1965 Sex Assigned At Female D ept. of Dermatology Sex Assigned At [facility] Start: 05-27-2023 Tobacco smoking status Never s moked tobacco (finding) [facility] [place] Tobacco smoking status Never Gener [facility] [place] Goals Date Patient Goal Desired Activity /State Functional Status Date Assessment Result Facility 05-27-2023 Functional Status N/A [facility] [place] Clinical Notes 01-20-2023 to 05-27-2023 Note Date [...] in stools, no abd complaints; last colonoscopy 2019 wnl; no abdominal operations; no asa or [...] vaccine, inactivated - Not Given Patient Refuses [facility] Comment on above: Result Comment: Elec tronically Signed By: TENA EM, Real Wilkerson\.papa\Date and Time Signed: 05/27/23 13:44 EST 04-21-2023 [...] Real Marina MD on 04/21/2023 9:54 AM [facility] 03-30-2023 Evaluation note Encounter Date Diagnosis Assessment Notes Mar, Iron deficiency anemia, unspecified iron deficiency anemia type (ICD-10 - D50.9) [facility] Other 12-14-2023 Evaluation note* Encounter Date Diagnosis Assessment Notes [...] has monthly periods. 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 Agrees to US to assess LN v. salivary gland etiology. [employer] [facility] Other [id number] Evaluation note* Encounter Date Diagnosis Assessment Notes [...] prescribed. Patient will call if problem persists. [employer] Other Evaluation + Plan note No data available for this section [facility] [place] Evaluation noteN/ADept. of Dermatology Evaluation noteNo Information[facility]ortConemaugh [facility] [employer] Other History general Narrative - Reported* Type Description Date Medical History HTN [facility] [employer] Other Hospital Discharge instructions No data available for this section [facility] [place] Progress note No data available for this section [facility] [place] Reason for referral (narrative)* Name Reason for [...] Reason *FU 04/06 Dr. Maty sal - hazel of iron def anemia, recent labs scanned in chart. had IV iron in the past. Diagnosis 1 Iron deficiency anem ia, unspecified iron deficiency anemia type (D50.9) Referral Organization [facility] Referring Provider First Name Jeanie Referring Provider Last Name Sarah Referring Provider Specialty Family [facility] Referred Organization [facility] Referred Provider AMBAR JOSEPH Referred Address [address] [place], [place],[address] Referred Provider Specialty Hematology Referral Priority Routine General Notes Mae Pendleton 07:51:36 AM >received today, notes locked, attachments made, referral faxed. Clinical Notes p: [phone] f: [phone] Additional Source Comments INFORMATION SOURCE (unrecogn ized section and content) DATE CREATED AUTHOR 10/28/2022 [facility] DATE CREATED AUTHOR AUTHOR'S ORGANIZ ATION 04/24/2023 [facility] DATE CREATED AUTHOR AUTHOR'S ORGANIZ ATION 06/23/2023 [facility] DATE CREATED AUTHOR AUTHOR'S ORGANIZ ATION 07/19/2023 [facility] REASON FOR VISIT (unrecogniz ed section and content) [facility] team informatio n (unrecognized section and content) Personnel Name: JEANIE SMITH MD Address: Address: [address] [place] [address] FOR RECORDS PERTAINING TO PATIENTS WHO ARE [...] BE BASED ON THE PRIMARY CLINICAL RECORDS. [facility] [employer]. provides no warranty or guarantee of the accuracy or completeness of information in this document.
[2023-07-29 12:11] LABS: Age Gdln ACOG Testing Note (.); HPV Aptima Negative (Negative); IGP, Aptima HPV, rfx 16/18,45 Note (.)
== END 2023-07-25 20:11 | disposition home or self-care (01) ==
LOC: LAB 20:10
PROVIDERS: PCP Family Medicine; Visit Provider Obstetrics & Gynecology
DX: Z01.419 Encounter for gynecological examination (general) (routine) without abnormal findings (principal)
CPT/HCPCS: 87624; G0145

== ENCOUNTER 2023-08-05 10:57 | Outpatient (OUT) | payer OTHER, SELFPAY ==
--- NOTE | 2023-08-05 11:02 | ECG_ITS ---
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
--- OUTSIDE RECORDS SUMMARY | 2023-08-05 11:06 | XMS_ITS | CCD ---
Author Organization [facility] Care Team Providers Care Retarder Operator Name Role Phone Prasanth Walker Unavailable Unavailable Dr. Prasanth Walker Attending John Craft, Dr. Kellogg Referring Unavailable Jeanie Smith Unavailable JEANIE SMITH Referring Unavailable JEANIE SMITH Primary Care Unavailable JEANIE SMITH Referring Unavailable JEANIE SMITH Primary Care Unavailable JEANIE SMITH Referring Unavailable JEANIE SMITH Primary Care Unavailable JEANIE SMITH Primary Care Physician [phone] BENJAMIN, AMBAR Primary Care Unavailable Real MADSEN Attending Unavailable BENJAMIN, AMBAR Referring Unavailable BENJAMIN, AMBAR Primary Care Unavailable Real MADSEN Attending Unavailable MESSI ORO Attending Unavailable MESSI ORO Attending Unavailable Allergies Allergy Classification Reported Allergen(s) Allergy Type Date of Onset Reaction(s) Facility (1 source) No Alert Propensity to adverse reactions to drug 3 Dept. of Dermatology (1 source) No Known Medication Allergies; Translations: [No Known Medication Allergies] Propensity to adverse reactions (disorder) [facility] Repository Medications Current Medications Medication Drug Class(es) [...] Range Facility Consultation Noteon 07-13-19 Consultation Note [id number] #1.00TIFF [facility] Outside Colonoscopyon 2023 Outside Colonoscopy [id number] #1.00TIFF [facility] Reminderson 07-07-2023 Reminders - From: Samaria Cortez LPN To: N - Clinical; Sent: 07/07/2023 09:42:12 EDT Show up: 06/04/2033 07:00:00 EDT Subject: colonoscopy recall Due Date/Time: 07/05/2033 07:00:00 EDT Reminder/Recall Patient due for screening colonoscopy 07/05/2033. Normal [facility] Lab Reportson 07-06-2023 Lab Reports [id number] #1.00TIFF [facility] Insurance Correspondenceon 0 06-23-2023 Insurance Correspondence [id number] 7#1.00TIFF Normal [facility] Consultation Noteon 06-06-19 Consultation Note [id number] #1.00TIFF [facility] Consent for Procedure/Surger yon 05-31-2023 Consent for Procedure/Surgery [id number] #1.00TIFF [facility] Facesheeton 05-30-2023 Facesheet [id number] 6#1.00TIFF [facility] Ambulatory Visit Summaryon 0 05-27-2023 Ambulatory [...] for choosing us for your care. 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 04-20-2023 MAMM SCREENING BILATERAL W CAD MAMM [...] AM 1 b MAMM 1 YR Normal [facility] Physician Referralon 024 Physician Referral [id number] #1.00TIFF Normal [facility] Vital Signs Date Time Vital Sign Value Performing Clinician Facility 05-27-2023 13:14-0500 Blood Pressure Location Real MADSEN [facility] 05-27-2023 13:14-0500 Diastolic blood pressure 78 mm[Hg] Real MADSEN [facility] 05-27-2023 13:14-0500 Heart rate 76 /min Real MADSEN [facility] 05-27-2023 13:14-0500 Respiratory rate 16 /min Real MADSEN [facility] 05-27-2023 13:14-0500 Systolic blood pressure 116 mm[Hg] [facility] [place] 03-03-2023 11:00-0500 Body height 152.4 cm Jeanie Smith Other [facility] Other 03-03-2023 11:00-0500 Body mass index (BMI) [Ratio] 40.07 kg/m2 Jeanie Smith Other [facility] Other 03-03-2023 11:00-0500 Body weight 93.08 kg Jeanie Smith Other [facility] Other 03-03-2023 11:00-0500 Diastolic blood pressure 77 mm[Hg] Jeanie Smith Other [facility] Other 03-03-2023 11:00-0500 Systolic blood pressure 120 mm[Hg] Jeanie Smith Other [facility] Other 01-20-2023 14:00-0400 Body height 152.4 cm Jeanie Smith Other [facility] Other 01-20-2023 14:00-0400 Body mass index (BMI) [Ratio] 40.23 kg/m2 Jeanie Smith Other [facility] Other 01-20-2023 14:00-0400 Body weight 93.44 kg Jeanie Smith Other [facility] Other 01-20-2023 14:00-0400 Diastolic blood pressure 73 mm[Hg] Jeanie Smith Other [facility] Other 01-20-2023 14:00-0400 Systolic blood pressure 116 mm[Hg] Jeanie Smith Other [facility] Other 1965 23:00-0500 >na< Prasanth Walker Dept. of Dermato logy Encounters Encounter Date Encounter Type Care Provider Facility Start: 07-25-2023 End: 07-25-2023 ambulatory MESSI SHORTY Not Available Start: 07-06-2023 End: 07-07-2023 ambulatory Real MADSEN Facility::[id number] Start: 06-22-2023 End: 06-22-2023 ambulatory MESSI SHORTY Not Available Start: 05-27-2023 End: 05-28-2023 ambulatory Real Wilkerson CHITRAL Facility: [facility] Start: 05-27-2023 End: 05-27-2023 Patient encounter procedure Real Wilkerson TENA General Surgery Nill/Said [place] Start: 04-20-2023 End: 04-21-2023 ambulatory JEANIE SMITH [facility] Start: 04-13-2023 End: 04-21-2023 ambulatory JEANIE SMITH [facility] Start: 04-08-2023 End: 04-08-2023 ambulatory Jeanie Smith Other [facility] [employer] Other Start: 04-08-2023 Telephone encounter Jeanie Smith [facility] Start: 04-05-2023 ambulatory AMBAR BENJAMIN Facility : [facility] Start: 03-30-2023 End: 03-30-2023 ambulatory Jeanie Smith Other [facility] [employer] Other Start: 03-30-2023 Telephone encounter Jeanie Smith [facility] Start: 03-03-2023 End: 03-03-2023 ambulatory Jeanie Smith Other [facility] Other Start: 03-03-2023 Encounter for genera l adult medical examination without abnormal findings Jeanie Smith [facility] Start: 03-03-2023 Periodic preventive med est patient 40-64yrs Jeanie Smith [facility] Start: 01-20-2023 End: 01-20-2023 ambulatory Jeanie Smith Other [facility] [employer] Other Start: 01-20-2023 Office outpatient ne w 30 minutes Jeanie Sarah [facility] Start: 10-27-2022 Prasanth Walker Dept. [...] Immunization Date Immunization Notes Care Provider [facility] 1965 pneumococcal conjugate vaccine, 7 valent Prasanth Walker Dept. of Dermatology NEGATED: Highlighted row has not occurred!05-27-2023 influenza virus vaccine, unspecified formulation Real MADSEN [facility] [place] Payers Date Payer Category Payer Unknown [id number] 1965 Unknown [id number] 2.16. [id number] 1965 Unknown [id number] 2.16.8 [id number] 1965 Unknown [id number] 2.16.8 [id number] 1965 Unknown [id number] 2.16.8 [id number] 1965 Unknown [id number] 2.16.8 [id number] 1965 Unknown [id number] 2.16.8 [id number] 1965 Unknown [id number] 2.16.8 [id number] 1965 Unknown [id number] 2.16.84 [id number] 1965 Unknown [id number] 2.16.84 [id number] Social History Date Type Detail Facility Start: 10-27-2022 Dept. of D ermatology Start: 1965 Sex Assigned At Female D ept. of Dermatology Sex Assigned At [facility] Start: 05-27-2023 Tobacco smoking status Never s moked tobacco (finding) [facility] [place] Tobacco smoking status Never Gener al [facility] [place] Goals Date Patient Goal Desired Activity /State Functional Status Date Assessment Result Facility 05-27-2023 Functional Status N/A [facility] Clinical Notes 01-20-2023 to 05-27-2023 Note Date [...] vaccine, inactivated - Not Given Patient Refuses [facility] Comment on above: Result Comment: Elec tronically Signed By: TENA EM, Real Wilkerson\sarah\Date and Time Signed: 05/27/23 13:44 EST 04-21-2023 [...] Real Marina MD on 04/21/2023 9:54 AM [facility] 03-30-2023 Evaluation note Encounter Date Diagnosis Assessment Notes Mar, Iron deficiency anemia, unspecified iron deficiency anemia type (ICD-10 - D50.9) [facility] Other 12-14-2023 Evaluation note* Encounter Date Diagnosis [...] has monthly periods. Encouraged regular followup w [employer] for assessment of this. 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 Agrees to US to assess LN v. salivary gland etiology. [facility] Other 11-02-2023 Evaluation note* Encounter Date Diagnosis Assessment Notes [...] prescribed. Patient will call if problem persists. [facility] Other Evaluation + Plan note No data available for this section [facility] [place] Evaluation noteN/ADept. of Dermatology Evaluation noteNo InformationNort Next Caller Other History general Narrative - Reported* Type Description Date Medical History HTN [facility] Other Hospital Discharge instructions No data available for this section [facility] [place] Progress note No data available for this section [facility] [place] Reason for referral (narrative)* Name Reason for [...] Directives Records Found Reason for Referral Reason *JEOVANNY 04/06 Dr. Maty sal - hazel of iron def anemia, recent labs scanned in chart. had IV iron in the past. Diagnosis 1 Iron deficiency anem ia, unspecified iron deficiency anemia type (D50.9) Referral Organization [facility] guero Referring Provider First Name Jeanie Referring Provider Last Name Sarah Referring Provider Specialty Family [facility] Referred Organization [facility] Referred Provider AMBAR JOSEPH Referred Address [address] [place], [place],[address] Referred Provider Specialty Hematology Referral Priority Routine General Notes Mae Pendleton 07:51:36 AM >received today, notes locked, attachments made, referral faxed. Clinical Notes p: [phone] f: [id number] Additional Source Comments INFORMATION SOURCE (unrecogn ized section and content) DATE CREATED AUTHOR 10/28/2022 [facility] DATE CREATED AUTHOR AUTHOR'S ORGANIZ ATION 04/24/2023 [facility] DATE CREATED AUTHOR AUTHOR'S ORGANIZ ATION 07/19/2023 [facility] DATE CREATED AUTHOR AUTHOR'S ORGANIZ ATION 07/26/2023 [facility] dical Specialists EPIC REASON FOR VISIT (unrecogniz ed section and content) Possible [facility] srefill Patient Care team informatio n (unrecognized section and content) Personnel Name: JEANIE SMITH MD Address: Address: [address] [place] [address] FOR RECORDS PERTAINING TO PATIENTS WHO ARE [...] BE BASED ON THE PRIMARY CLINICAL RECORDS. [facility]. provides no warranty or guarantee of the accuracy or completeness of information in this document.
== END 2023-08-05 10:58 | disposition home or self-care (01) ==
LOC: PST 10:57
PROVIDERS: PCP Family Medicine; Visit Provider Obstetrics & Gynecology
DX: Z01.810 Encounter for preprocedural cardiovascular examination (principal); N93.9 Abnormal uterine and vaginal bleeding, unspecified; R10.2 Pelvic and perineal pain
CPT/HCPCS: 93005

== ENCOUNTER 2024-01-13 11:08 | Outpatient (OUT) | payer OTHER, SELFPAY ==
--- OUTSIDE RECORDS SUMMARY | 2024-01-13 11:17 | XMS_ITS | CCD ---
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 Prasanth Walker Attending Dr. Bess Montanez Referring Unavailable Jeanie Smith Unavailable JEANIE SMITH Referring Unavailable JEANIE SMITH Primary Care Unavailable JEANIE SMITH Referring Unavailable JEANIE SMITH Primary Care Unavailable JEANIE SMITH Referring Unavailable JEANIE SMITH Primary Care Unavailable JEANIE SMITH Primary Care Physician [phone] BENJAMIN, AMBAR Primary Care Unavailable Rela MADSEN Attending Unavailable BENJAMIN, AMBAR Referring Unavailable BENJAMIN, AMBAR Primary Care Unavailable Real MADSEN Attending Unavailable MESSI ORO Attending Unavailable MESSI ORO Attending Unavailable BESS COREA Attending Unavailable Allergies Allergy Classification Reported Allergen(s) Allergy Type Date of Onset Reaction(s) Facility (1 source) No Alert Propensity to adverse reactions to drug 3 Dept. of Dermatology (1 source) No Known Medication Allergies; Translations: [No Known Medication Allergies] Propensity to adverse reactions (disorder) [facility] Repository Medications Current Medications Medication Drug Class(es) [...] Range Facility Consultation Noteon 07-13-19 Consultation Note [id number] #1.00TIFF Normal [facility] Outside Colonoscopyon 2023 Outside Colonoscopy [id number] #1.00TIFF [facility] Reminderson 07-07-2023 Reminders - From: Samaria Cortez LPN To: GARTHN - Clinical; Sent: 07/07/2023 09:42:12 EDT Show up: 06/04/2033 07:00:00 EDT Subject: colonoscopy recall Due Date/Time: 07/05/2033 07:00:00 EDT Reminder/Recall Patient due for screening colonoscopy 07/05/2033. [facility] Lab Reportson 07-06-2023 Lab Reports [id number] #1.00TIFF [facility] Insurance Correspondenceon 0 06-23-2023 Insurance Correspondence [id number] 7#1.00TIFF [facility] Consultation Noteon 06-06-19 Consultation Note [id number] #1.00TIFF [facility] Consent for Procedure/Surger yon 05-31-2023 Consent for Procedure/Surgery [id number] #1.00TIFF [facility] Facesheeton 05-30-2023 Facesheet [id number] 6#1.00TIFF [facility] Ambulatory Visit Summaryon [...] for choosing us for your care. 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 04-20-2023 MAMM SCREENING BILATERAL W CAD MAMM [...] AM 1 b MAMM 1 YR Normal [facility] Physician Referralon 024 Physician Referral [id number] #1.00TIFF Normal [facility] Vital Signs Date Time Vital Sign Value Performing Clinician Facility 05-27-2023 13:14-0500 Blood Pressure Location Real MADSEN [facility] [place] 05-27-2023 13:14-0500 Diastolic blood pressure 78 mm[Hg] Real MADSEN [facility] 05-27-2023 13:14-0500 Heart rate 76 /min Real MADSEN [facility] 05-27-2023 13:14-0500 Respiratory rate 16 /min Real Kerr [facility] [place] 05-27-2023 13:14-0500 Systolic blood pressure 116 mm[Hg] Real MADSEN [facility] [place] 03-03-2023 11:00-0500 Body height 152.4 cm Jeanie Smith Other [facility] Other 03-03-2023 11:00-0500 Body mass index (BMI) [Ratio] 40.07 kg/m2 Jeanie Smith Other [facility] Other 03-03-2023 11:00-0500 Body weight 93.08 kg Jeanie Smith Other [facility] Other 03-03-2023 11:00-0500 Diastolic blood pressure 77 mm[Hg] Jeanie Smith Other [facility] Other 03-03-2023 11:00-0500 Systolic blood pressure 120 mm[Hg] Jeanie Smith Other [facility] Other 01-20-2023 14:00-0400 Body height 152.4 cm Jeanie Smith Other [facility] Other 01-20-2023 14:00-0400 Body mass index (BMI) [Ratio] 40.23 kg/m2 Jeanie Smith Other [facility] Other 01-20-2023 14:00-0400 Body weight 93.44 kg Jeanie Smith Other [facility] Other 01-20-2023 14:00-0400 Diastolic blood pressure 73 mm[Hg] Jeanie Smith Other [facility] Other 01-20-2023 14:00-0400 Systolic blood pressure 116 mm[Hg] Jeanie Smith Other [facility] Other 1965 23:00-0500 >na< Prasanth Walker Dept. of Dermato logy Encounters Encounter Date Encounter Type Care Provider Facility Start: 08-04-2023 End: 08-04-2023 ambulatory BESS COREA Not Available Start: 07-25-2023 End: 07-25-2023 ambulatory MESSI SHORTY Not Available Start: 07-06-2023 End: 07-07-2023 ambulatory Real MADSEN Facility::[id number] Start: 06-22-2023 End: 06-22-2023 ambulatory MESSI MENGO Not Available Start: 05-27-2023 End: 05-28-2023 ambulatory Real R CHITRAL Facility: [facility] Start: 05-27-2023 End: 05-27-2023 Patient encounter procedure Real MADSEN General Surgery Nill[facility]Said [facility] Start: 04-20-2023 End: 04-21-2023 ambulatory JEANIE Palencia [facility] Start: 04-13-2023 End: 04-21-2023 ambulatory JEANIE SMITH [facility] Start: 04-08-2023 End: 04-08-2023 ambulatory Jeanie Smith Other [facility] Other Start: 04-08-2023 Telephone encounter Jeanie Smith [facility] Start: 04-05-2023 ambulatory AMBAR BENJAMIN Facility : [facility] Start: 03-30-2023 End: 03-30-2023 ambulatory Jeanie Smith Other [facility] Other Start: 03-30-2023 Telephone encounter Jeanie Smith [facility] Start: 03-03-2023 End: 03-03-2023 ambulatory Jeanie Smith Other [facility] Other Start: 03-03-2023 Encounter for genera l adult medical examination without abnormal findings Jeanie Sarah [facility] Start: 03-03-2023 Periodic preventive med est patient 40-64yrs Jeanie Smith [facility] Start: 01-20-2023 End: 01-20-2023 ambulatory Jeanie Smith Other [facility] Other Start: 01-20-2023 Office outpatient ne w 30 minutes Jeanie Sarah [facility] Start: 10-27-2022 Prasanth Walker Dept. of Dermatology Start: 10-26-[address] Prasanth Muro as Aaron Facility:[id number] Procedures Date Procedure Procedure Detail Performing Clinician Start: 10-26-2022 Mohs micrographic h/ n/h/f/g 1st stage 5 blocks Prasanth Walker Start: 06-09-2018 Colonoscopy Real NI LL Decompression of med yaneth nerve Real TENA Excision of basal ce ll carcinoma Real MADSEN Comment on above: nose Skin graft material (substance) Real MADSEN Immunizations Immunization Date Immunization Notes Care Provider Umair nixon 1965 pneumococcal conjugate vaccine, 7 valent Prasanth Walker Dept. of Dermatology NEGATED: Highlighted row has not occurred!05-27-2023 influenza virus vaccine, unspecified formulation Real MADSEN [facility] [place] Payers Date Payer Category Payer Unknown [id number] 1965 Unknown [id number] 2.16. [id number] 1965 Unknown [id number] 2.16.8 [id number] 1965 Unknown [id number] 2.16.8 [id number] 1965 Unknown [id number] 2.16.8 40.1.600433.3.579.2.1286 1965 Unknown [id number] 2.16.8 [id number] 1965 Unknown [id number] 2.16.8 [id number] 1965 Unknown [id number] 2.16.8 [id number] 1965 Unknown [id number] 2.16.84 0.1.731905.3.579.2.1259 1965 Unknown [id number] 2.16.84 0.1.255896.3.579.2.1259 1965 Unknown [id number] 2.16.84 [id number] Social History Date Type Detail Facility Start: 10-27-2022 Dept. of D ermatology Start: 1965 Sex Assigned At Female D ept. of Dermatology Sex Assigned At [facility] Start: 05-27-2023 Tobacco smoking status Never s moked tobacco (finding) [facility] [place] Tobacco smoking status Never Gener al [facility] [place] Goals Date Patient Goal Desired Activity /State Functional Status Date Assessment Result Facility 05-27-2023 Functional Status N/A General Bailey [facility] Clinical Notes 01-20-2023 to 05-27-2023 Note [...] vaccine, inactivated - Not Given Patient Refuses [facility] Comment on above: Result Comment: Elec tronically Signed By: TENA EM, Real Bentley\Date and Time Signed: 05/27/23 [...] Real Marina MD on 04/21/2023 9:54 AM [facility] 03-30-2023 Evaluation note Encounter Date Diagnosis Assessment Notes Mar, Iron deficiency anemia, unspecified iron deficiency anemia type (ICD-10 - D50.9) [facility] Other 12-14-2023 Evaluation note* Encounter Date Diagnosis [...] has monthly periods. Encouraged regular followup w [employer] for assessment of this. 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 Agrees to US to assess LN v. salivary gland etiology. [facility] Other 11-02-2023 Evaluation note* Encounter Date Diagnosis [...] prescribed. Patient will call if problem persists. [facility] Other Evaluation + Plan note No data available for this section [facility] [place] Evaluation noteN/ADept. of Dermatology Evaluation noteNo InformationNort [employer] Other History general Narrative - Reported* Type Description Date Medical History HTN [facility] Other Hospital Discharge instructions No data available for this section [facility] [place] Progress note No data available for this section [facility] [place] Reason for referral (narrative)* Name Reason for [...] anemia type (D50.9) Referral Organization [facility] guero Referring Provider First Name Jeanie Referring Provider Last Name Sarah Referring Provider Specialty Family [facility] Referred Organization [facility] Referred Provider AMBAR JOSEPH Referred Address [address] [place], [place],[address] Referred Provider Specialty Hematology Referral Priority Routine General Notes Mae Pendleton 07:51:36 AM >received today, notes locked, attachments made, referral faxed. Clinical Notes p: [phone] f: [id number] Additional Source Comments INFORMATION SOURCE (unrecogn ized section and content) DATE CREATED AUTHOR 10/28/2022 [facility] DATE CREATED AUTHOR AUTHOR'S ORGANIZ ATION 04/24/2023 [facility] DATE CREATED AUTHOR AUTHOR'S ORGANIZ ATION 07/19/2023 [facility] DATE CREATED AUTHOR AUTHOR'S ORGANIZ ATION 08/06/2023 [facility] dical Specialists EPIC REASON FOR VISIT (unrecogniz ed section and content) [facility] Patient Care team informatio n (unrecognized section and content) Personnel Name: JEANIE SMITH MD Address: Address: [address] [place] [address] FOR RECORDS PERTAINING TO PATIENTS WHO ARE [...] BE BASED ON THE PRIMARY CLINICAL RECORDS. [facility]. provides no warranty or guarantee of the accuracy or completeness of information in this document.
[2024-01-13 11:25] LABS: Basophils Absolute Auto 0.1 10^3/uL (0.0-0.1); Basophils Percent Auto 1.2 % (0.2-2.0); Eosinophils Absolute Auto 0.2 10^3/uL (0.0-0.7); Eosinophils Percent Auto 3.4 % (0.9-7.0); Hematocrit 44.7 % (36.0-48.0); Immature Granulocytes Abs Auto 0.01 10^3/uL (0.00-0.03); Immature Granulocytes Pct Auto 0.2 % (0.0-0.5); Lymphocytes Absolute Auto 1.4 10^3/uL (1.2-3.8); Lymphocytes Percent Auto 28.2 % (20.5-60.0); Mean Corpuscular HGB Conc 33.6 g/dL (29.9-35.2); Mean Corpuscular Hemoglobin 30.4 pg (26.7-34.0); Mean Corpuscular Volume 90.5 fL (81.0-99.0); Mean Platelet Volume 12.1 fL (9.5-13.5); Monocytes Absolute Auto 0.5 10^3/uL (0.3-0.8); Monocytes Percent Auto 9.5 % (1.7-12.0); Neutrophils Absolute Auto 2.9 10^3/uL (1.4-6.5); Neutrophils Percent Auto 57.5 % (43.0-75.0); Platelet Count 197 10^3/uL (150-450); Red Blood Count 4.94 10^6/uL (4.20-5.40)
[2024-01-13 11:52] LABS: BUN Creatinine Ratio 8.4; Calcium 8.9 mg/dL (8.5-10.1); Carbon Dioxide 29.9 mmol/L (21.0-32.0); Chloride 103 mmol/L (98-107); Estimated GFR (African America >60 (>=60 mL/min/1.73m^2); Estimated GFR (Non-African Ame >60 (>=60 mL/min/1.73m^2); Glucose 95 mg/dL (74-106); Potassium 3.9 mmol/L (3.5-5.1); Sodium 142 mmol/L (136-145)
[2024-01-13 12:08] LABS: Percent Iron Saturation 33.6 %
[2024-01-14 07:08] LABS: Vitamin B12 529 pg/mL (232-1245)
== END 2024-01-13 11:09 | disposition home or self-care (01) ==
LOC: LAB 11:09
PROVIDERS: PCP Family Medicine; Visit Provider Internal Medicine Hematology & Oncology
DX: D50.9 Iron deficiency anemia, unspecified (principal); K90.9 Intestinal malabsorption, unspecified
CPT/HCPCS: 36415; 80048; 82306; 82607; 82728; 83540; 83550; 85025

== ENCOUNTER 2024-01-17 07:39 | Outpatient (RCR) | payer OTHER, SELFPAY | END 2024-01-19 23:59 | disposition home or self-care (01) | LOC: HEMC 07:39 | PROVIDERS: PCP Family Medicine; Visit Provider Internal Medicine Hematology & Oncology | DX: D50.9 Iron deficiency anemia, unspecified (principal); K90.9 Intestinal malabsorption, unspecified; R53.1 Weakness; R53.83 Other fatigue; Z80.0 Family history of malignant neoplasm of digestive organs | CPT/HCPCS: G0463 ==

== ENCOUNTER 2024-05-25 14:02 | Outpatient (OUT) | payer OTHER, SELFPAY ==
--- OUTSIDE RECORDS SUMMARY | 2024-05-25 14:10 | XMS_ITS | CCD ---
Author Organization [facility] Care Team Providers Care Ophthalmic Surgeon Name Role Phone Prasanth Walker Unavailable Unavailable Dr. Prasanth Walker Attending Dr. Bess Montanez Referring Unavailable Jeanie Smith Unavailable JEANIE SMITH Referring Unavailable JEANIE SMITH Primary Care Unavailable JEANIE SMITH Referring Unavailable JEANIE SMITH Primary Care Unavailable JEANIE SMITH Referring Unavailable JEANIE SMTIH Primary Care Unavailable JEANIE SMITH Primary Care Physician BENJAMIN AMBAR Primary Care Unavailable Real MADSEN Attending Unavailable BENJAMIN AMBAR Referring Unavailable BENJAMIN, AMBAR Primary Care Unavailable Real MADSEN Attending Unavailable MESSI ORO Attending Unavailable MESSI ORO Attending Unavailable BESS COREA Attending Unavailable Jeanie Smith MD Attending Provider [phone] Jeanie Smith Attending Unavailable Jeanie Smith Admitting Unavailable Allergies Allergy Classification Reported Allergen(s) Allergy Type Date of Onset Reaction(s) Facility (1 source) No Alert Propensity to adverse reactions to drug 3 Dept. of Dermatology (1 source) No Known Medication Allergies; Translations: [No Known Medication Allergies] Propensity to adverse reactions (disorder) [facility] Repository Medications Current Medications Medication Drug Class(es) Dates Sig (Normalized) Sig (Original) lisinopril 30 mg oral tablet (13 sources) Angiotensin Converting Enzyme Inhibitor Start: 01-27-2024 End: 03-22-2024 take 1 tablet by mouth once daily Lisinopril 30 mg tablet Active 0 .ROUTE .COMPLEX 90 March 22, 2024 1:18pm TAKE 1 TABLET BY MOUTH DAILY Start: 01-25-2024 End: 01-27-2024 take 1 tablet by mouth once daily Lisinopril 30 mg tablet Discontinued 30 MG PO Daily January 25, 2024 12:00am January 27, 2024 11:36am Start: 05-13-2023 lisinopril 30 mg Tab 15 mg = 0.5 tab(s), Oral, Daily, Refills(s) 0 Start Date: 05/13/23 Status: Ordered Lisinopril 30 MG 1/2 tablet once a day for 30 days Active methylPREDNISolone 4 mg oral tablet (1 source) Corticosteroid methylPREDNISolo ne 4 MG as directed Orally for 6 days Active sulfamethoxazole 800 mg / trimethoprim 160 mg oral tablet (2 sources) Dihydrofolate Reductase Inhibitor Antibacterial, Sulfonamide Antimicrobial Start: 2024 take 1 tablet by mouth twice daily Sulfamethoxazole-Trimet hoprim 800-160 mg tablet Active 1 TAB PO Twice daily April 05, 2024 12:00am valACYclovir 1000 mg oral tablet (1 source) Herpesvirus Nucleoside Analog DNA Polymerase Inhibitor, Herpes Simplex Virus Nucleoside Analog DNA Polymerase Inhibitor, Herpes Zoster Virus Nucleoside Analog DNA Polymerase Inhibitor take 1 tablet by mouth every eight hours valACYclovir HCl 1 GM 1 tablet Orally tid for 7 days Active (1 source) Completed/Discontinued Medications Medication Drug Class(es) Dates Sig (Normalized) Sig (Original) azithromycin 250 mg oral tablet (3 sources) Macrolide Antimicrobial Start: 01-27-2024 End: 04-05-2024 Azithromycin 250 mg tablet Discontinued 0 PO .COMPLEX January 27, 2024 12:00am April 05, 2024 10:30am For 250 mg dose pack: take 500 mg today (day 1), then 250 mg for 4 days (days 2-5) PO predniSONE 20 mg oral tablet (3 sources) Start: 01-27-2024 End: 04-05-2024 take 1 tablet by mouth once daily Prednisone 20 mg tablet Discontinued 20 MG PO daily January 27, 2024 12:00am April 05, 2024 10:30am Problems Problem Classification Problem Date Documented Date Episodic/Chronic Abdominal pain (4 sources) Left flank pain; Translations: [Unspecified abdominal pain] 04-05-2024 Episodic Allergic reactions (1 source) Dermatitis, unspecified Episodic Chronic obstructive pulmonary disease and bronchiectasis (4 sources) Bronchitis; Translations: [Bronchitis, not specified as acute or chronic] 02-03-2024 Episodic Deficiency and other anemia (5 sources) Iron deficiency anemia; Translations: [Iron deficiency anemia, unspecified] Onset: 05-27-2023 Episodic Deficiency and other anemia (2 sources) Iron deficiency anemia, unspecified Episodic Essential hypertension (9 sources) Essential hypertension; Translations: [Essential (primary) hypertension] [...] Test Name Value Interpretation Reference Range Facility Urine Cultureon 04-05-2024 Bacteria identified Cx Nom (U) <9,000 colonies/ml mixed bacterial skin contaminants 2 Days PERFORMED BY: [place] [address] PATHOLOGIST [employer] P[employer]ER YAQUELIN DUNCAN M.D. Normal [facility] Comment on above: Performed By: #### C UU #### [address] Basophils Auto (Bld) [#/Vol] on 01-13-2024 Basophils (Bld) [#/Vol] Automated basophil count 0.0-0.1 [facility] Basophils/100 WBC Auto (Bld) on 01-13-2024 Basophils/100 WBC (Bld) Automated basophil % 0.2-2.0 [facility] Eosinophils/100 WBC Auto (Bl d)on 01-13-2024 Eosinophils/100 WBC (Bld) Automated eosinophil % 0.9-7.0 [facility] Erythrocyte distribution wid th Auto (RBC) [Ratio]on 01-13-2024 Erythrocyte distribution width (RBC) [Ratio] Erythrocyte distribution width [Ratio] by Automated count 11.0-15.0 [facility] Estimated glomerular filtrat ion rate (GFR) non- Americanon 01-13-2024 GFR/1.73 sq M.predicted among non-blacks MDRD (S/P/Bld) [Vol rate/Area] Estimated glomerular filtration rate (GFR) non- >=60 mL/min/1.73m 2 [facility] Hematocrit Auto (Bld) [Volum e fraction]on 01-13-2024 Hematocrit (Bld) [Volume fraction] Hematocrit [Volume Fraction] of Blood by Automated count 36.0-48.0 [facility] Hemoglobin [Mass/volume] in Bloodon 01-13-2024 Hemoglobin (Bld) [Mass/Vol] Hemoglobin [Mass/volume] in Blood 12.0-16.0 [facility] Iron binding capacity [Mass/ volume] in Serum or Plasmaon 01-13-2024 Iron binding capacity [Mass/Vol] Iron binding capacity [Mass/volume] in Serum or Plasma 250.0-450.0 [facility] Iron saturation [Mass Fracti on] in Serum or Plasmaon 01-13-2024 Iron saturation [Mass fraction] Iron saturation [Mass Fraction] in Serum or Plasma [facility] Laboratory - Chemistry and C hemistry - challengeon 01-13-2024 Calcium [Mass/Vol] 8.9 mg/dL 8.5-10.1 [facility] Chloride [Moles/Vol] 103 mmol/L 98-107 [facility] CO2 [Moles/Vol] 29.9 mmol/L 21.0-32.0 [facility] Cobalamin (Vitamin B12) [Mass/Vol] 529 pg/mL [id number] [facility] Comment on above: Performed at: [address] [id number] Director: Francisco J Ríos PhD, Phone: [phone] Creatinine [Mass/Vol] 0.83 mg/dL 0.55-1.02 [facility] Ferritin [Mass/Vol] 747.0 ng/mL High 8.0-252.0 [facility] GFR/1.73 sq M.predicted MDRD (S/P/Bld) [Vol rate/Area] mL/min/{1.73_m2} >=60 mL/min/1.73m 2 [facility] Glucose [Mass/Vol] 95 mg/dL 74-106 [facility] Iron [Mass/Vol] 100.0 ug/dL 50.0-170.0 [facility] Potassium [Moles/Vol] 3.9 mmol/L 3.5-5.1 [facility] Sodium [Moles/Vol] 142 mmol/L 136-145 [facility] Urea nitrogen [Mass/Vol] 7.0 mg/dL 7.0-18.0 [facility] Urea nitrogen/Creatinine [Mass ratio] 8.4 mg/mg [facility] Laboratory - Hematology and Cell countson 01-13-2024 Immature granulocytes/100 WBC (Bld) 0.2 % 0.0-0.5 [facility] Leukocytes [#/volume] correc polly for nucleated erythrocytes in Blood by Automated counon 01-13-2024 WBC corrected for nucl RBC Auto (Bld) [#/Vol] Leukocytes [#/volume] corrected for nucleated erythrocytes in Blood by Automated coun 4.0-11.0 [facility] Lymphocytes Auto (Bld) [#/Vo l]on 01-13-2024 Lymphocytes (Bld) [#/Vol] Lymphocytes [#/volume] in Blood by Automated count 1.2-3.8 [facility] Lymphocytes/100 WBC Auto (Bl d)on 01-13-2024 Lymphocytes/100 WBC (Bld) Lymphocytes/100 leukocytes in Blood by Automated count 20.5-60.0 [facility] MCH Auto (RBC) [Entitic mass ]on 01-13-2024 MCH (RBC) [Entitic mass] MCH [Entitic mass] by Automated count 26.7-34.0 [facility] MCHC Auto (RBC) [Mass/Vol]on 01-13-2024 MCHC (RBC) [Mass/Vol] MCHC [Mass/volume] by Automated count 29.9-35.2 [facility] MCV Auto (RBC) [Entitic vol] on 01-13-2024 MCV (RBC) [Entitic vol] MCV [Entitic volume] by Automated count 81.0-99.0 [facility] Monocytes Auto (Bld) [#/Vol] on 01-13-2024 Monocytes (Bld) [#/Vol] Automated blood monocyte count 0.3-0.8 [facility] Monocytes/100 WBC Auto (Bld) on 01-13-2024 Monocytes/100 WBC (Bld) Automated monocyte % 1.7-12.0 [facility] Neutrophils Auto (Bld) [#/Vo l]on 01-13-2024 Neutrophils (Bld) [#/Vol] Neutrophils [#/volume] in Blood by Automated count 1.4-6.5 [facility] Neutrophils/100 WBC Auto (Bl d)on 01-13-2024 Neutrophils/100 WBC (Bld) Automated neutrophil % 43.0-75.0 [facility] No Panel Informationon 01-12 25-Hydroxy Vitamin D Total 44.1 ng/mL [facility] Comment on above: <20 ng/mL Vit D defi cient20-<30 ng/mL Vit D [id number] ng/mL Vit D sufficient>100 ng/mL Potential Toxicity Eosinophils # (Auto) 0.2 10 3/uL 0.0-0.7 [facility] Immature Granulocyte # (Auto) 0.01 10 3/uL 0.00-0.03 [facility] Platelet mean volume Auto (B ld) [Entitic vol]on 01-13-2024 Platelet mean volume (Bld) [Entitic vol] Platelet mean volume [Entitic volume] in Blood by Automated count 9.5-13.5 [facility] Platelets Auto (Bld) [#/Vol] on 01-13-2024 Platelets (Bld) [#/Vol] Platelets [#/volume] in Blood by Automated count 150-450 [facility] RBC Auto (Bld) [#/Vol]on RBC (Bld) [#/Vol] Erythrocytes [#/volume] in Blood by Automated count 4.20-5.40 [facility] Serum or plasma anion gap de terminationon 01-13-2024 Anion gap [Moles/Vol] Serum or plasma anion gap determination [facility] Consultation Noteon 07-13-19 Consultation Note [id number] #1.00TIFF Normal [facility] Outside Colonoscopyon 2023 Outside Colonoscopy [id number] #1.00TIFF Normal [facility] Reminderson 07-07-2023 Reminders - From: Samaria Cortez LPN To: [facility] - Clinical; Sent: 07/07/2023 09:42:12 EDT Show up: 06/04/2033 07:00:00 EDT Subject: colonoscopy recall Due Date/Time: 07/05/2033 07:00:00 EDT Reminder/Recall Patient due for screening colonoscopy 07/05/2033. [facility] Lab Reportson 07-06-2023 Lab Reports [id number] #1.00TIFF [facility] Insurance Correspondenceon 0 06-23-2023 Insurance Correspondence [id number] 7#1.00TIFF Normal [facility] Consultation Noteon 06-06-19 Consultation Note [id number] #1.00TIFF [facility] Consent for Procedure/Surger yon 05-31-2023 Consent for Procedure/Surgery [id number] #1.00TIFF Normal [facility] Facesheeton 05-30-2023 Facesheet [id number] 6#1.00TIFF Normal [facility] Ambulatory Visit Summaryon 0 05-27-2023 Ambulatory Visit Summary KVNG QUAN :1965 Visit Date:05/27/2023 Ambulatory Visit Instructions [...] for choosing us for your care. 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-20-2023 MAMM SCREENING BILATERAL W CAD MAMM [...] AM 1 b MAMM 1 YR Normal [facility] Physician Referralon 024 Physician Referral [id number] #1.00TIFF Normal [facility] Vital Signs Date Time Vital Sign Value Performing Clinician Facility 04-05-2024 10:17-0500 Body height 152.4 cm [facility] 04-05-2024 10:17-0500 Body mass index (BMI) [Ratio] 40 kg/m2 [facility] 04-05-2024 10:17-0500 Body weight 92.98 kg [facility] 04-05-2024 10:17-0500 Diastolic blood pressure 72 mm[Hg] [facility] 04-05-2024 10:17-0500 Heart rate 66 /min [facility] 04-05-2024 10:17-0500 Systolic blood pressure 105 mm[Hg] [facility] 01-27-2024 11:18-0500 Body height 152.4 cm [facility] 01-27-2024 11:18-0500 Body mass index (BMI) [Ratio] 39.6 kg/m2 [facility] 01-27-2024 11:18-0500 Body temperature 97.9 [degF] [facility] 01-27-2024 11:18-0500 Body weight 92.07 kg [facility] 01-27-2024 11:18-0500 Diastolic blood pressure 75 mm[Hg] [facility] 01-27-2024 11:18-0500 Heart rate 79 /min [facility] 01-27-2024 11:18-0500 Systolic blood pressure 118 mm[Hg] [facility] 05-27-2023 13:14-0500 Blood Pressure Location Real MADSEN [facility] [place] 05-27-2023 13:14-0500 Diastolic blood pressure 78 mm[Hg] Real MADSEN [facility] [place] 05-27-2023 13:14-0500 Heart rate 76 /min Real NILL [facility] [place] 05-27-2023 13:14-0500 Respiratory rate 16 /min Real NILL [facility] [place] 05-27-2023 13:14-0500 Systolic blood pressure 116 mm[Hg] Real NILL [facility] [place] 03-03-2023 11:00-0500 Body height 152.4 cm Jeanie Smith Other [employer] Other 03-03-2023 11:00-0500 Body mass index (BMI) [Ratio] 40.07 kg/m2 Jeanie Smith Other [employer] Other 03-03-2023 11:00-0500 Body weight 93.08 kg Jeanie Smith Other [employer] Other 03-03-2023 11:00-0500 Diastolic blood pressure 77 mm[Hg] Jeanie Smith Other [employer] Other 03-03-2023 11:00-0500 Systolic blood pressure 120 mm[Hg] Jeanie Smith Other [employer] Other 01-20-2023 14:00-0400 Body height 152.4 cm Jeanie Smith Other [employer] Other 01-20-2023 14:00-0400 Body mass index (BMI) [Ratio] 40.23 kg/m2 Jeanie Smith Other [employer] Other 01-20-2023 14:00-0400 Body weight 93.44 kg Jeanie Smith Other [employer] Other 01-20-2023 14:00-0400 Diastolic blood pressure 73 mm[Hg] Jeanie Smith Other [facility] Other 01-20-2023 14:00-0400 Systolic blood pressure 116 mm[Hg] Jeanie Smith Other [place] [employer] Other 1965 23:00-0500 >na< Prasanth Walker Dept. of Dermato logy Encounters Encounter Date Encounter Type Care Provider Facility Start: 04-05-2024 End: 04-05-2024 Departed Referred Jeanie Smith MD Work Phone: [facility] [place] Work Phone: Start: 04-05-2024 End: 04-05-2024 ambulatory Jeanie Smith [facility] Work Phone: Start: 04-05-2024 End: 04-05-2024 Patient encounter procedure [facility] Phys[facility] Work Phone: Start: 01-27-2024 End: 01-27-2024 ambulatory [facility] Work Phone: Start: 01-27-2024 End: 01-27-2024 Patient encounter procedure [facility] Physician [facility] Work Phone: Start: 01-13-2024 Non-patient / Non-visit [facility] Physician [facility] Professional [facility] Work Phone: Start: 08-04-2023 End: 08-04-2023 ambulatory BESS Perez PETOMERI Not Available Start: 07-25-2023 End: 07-25-2023 ambulatory MESSI SHORTY Not Available Start: 07-06-2023 End: 07-07-2023 ambulatory Real MADSEN Facility:[id number] Start: 06-22-2023 End: 06-22-2023 ambulatory MESSI SHORTY Not Available Start: 05-27-2023 End: 05-28-2023 ambulatory Real MADSEN Facility:[facility] Start: 05-27-2023 End: 05-27-2023 Patient encounter procedure Real Wilkerson TENA [facility] Start: 04-20-2023 End: 04-21-2023 ambulatory JEANIE Slime SARAH [facility] Start: 04-13-2023 End: 04-21-2023 ambulatory JEANIE Palencia SARAH [facility] Start: 04-08-2023 End: 04-08-2023 ambulatory Jeanie Smith Other [employer] Other Start: 04-08-2023 Telephone encounter Jeanie Smith [facility] Start: 04-05-2023 ambulatory AMBAR JOSEPH Facility :[facility] Start: 03-30-2023 End: 03-30-2023 ambulatory Jeanie Sarah Other [employer] Other Start: 03-30-2023 Telephone encounter Jeanie Sarah [facility] Start: 03-03-2023 End: 03-03-2023 ambulatory Jeanie Smith Other [employer] Other Start: 03-03-2023 Encounter for genera l adult medical examination without abnormal findings Jeanie Sarah [facility] Start: 03-03-2023 Periodic preventive med est patient 40-64yrs Jeanie Sarah [facility] Start: 01-20-2023 End: 01-20-2023 ambulatory Jeanie Smith Other [employer] Other Start: 01-20-2023 Office outpatient ne w 30 minutes Jeanie Smith [facility] Start: 10-27-2022 Prasanth Walker Dept. of Dermatology Start: 10-26-[address] Prasanth Walker Facility:[id number] Procedures Date Procedure Procedure Detail Performing Clinician Start: 10-26-2022 Mohs micrographic h/ n/h/f/g 1st stage 5 blocks Prasanth Walker Start: 06-09-2018 Colonoscopy Real DAVIS Decompression of med yaneth nerve Real MADSEN Excision of basal ce ll carcinoma Real MADSEN Comment on above: nose Skin graft material (substance) Real MADSEN Plan of Treatment Date Care Activity Detail Author Start: 04-05-2024 Bacteria identified in Urine by Culture Urine Culture [facility] Start: 04-05-2024 End: 04-05-[address] [facility] Immunizations Immunization Date Immunization Notes Care Provider Fa cili 1965 pneumococcal conjugate vaccine, 7 valent Prasanth Walker Dept. of Dermatology NEGATED: Highlighted row has not occurred!05-27-2023 influenza virus vaccine, unspecified formulation Real MADSEN [facility] [place] Payers Date Payer Category Payer Self-pay 2022 Unknown [id number] 1965 Unknown [id number] [id number]. [id number] 1965 Unknown [id number] 2.16.8 [id number] 1965 Unknown [id number] 2.16.8 [id number] 1965 Unknown [id number] 2.16.8 [id number] 1965 Unknown [id number] 2.16.8 [id number] 1965 Unknown [id number] 2.16.8 [id number] 1965 Unknown [id number] 2.16.8 [id number] 1965 Unknown [id number] 2.16.84 [id number] 1965 Unknown [id number] 2.16.84 [id number] 1965 Unknown [id number] 2.16.84 [id number] Unknown [id number] 2.16.8 [id number] Social History Date Type Detail Facility Start: 10-27-2022 Dept. of D ermatology Start: 1965 End: 1965 Sex Assigned At Female [facility] Sex Assigned At [facility] Start: 05-27-2023 End: 01-27-2024 Tobacco smoking status Never smoked tobacco (finding) [facility] Tobacco smoking status Never [facility] Start: 01-27-2024 End: 04-06-2024 Sex Female (finding) [facility] Goals Date Patient Goal Desired Activity /State Functional Status Date Assessment Result Facility 05-27-2023 Functional Status N/A [facility] Clinical Notes 01-20-2023 to 01-27-2024 Note Date & Type Note Facility 01-27-2024 Evaluation note Diagnosis Onset Date Resolution Bronchitis acute January 27, 2024 11:14am Essential (primary) hypertension acute January 26 11:14am Acute left flank pain acute Mar 10:14am [facility] Work Phone: 1(928) 137-329403-08-2024 NoteChief Complaint consultation for anemia HPI Staff 58 [...] had EGD in the past. No known fami ly history of colon cancer. History of Present Illness 58 yo female with h/o htn, referred for iron deficiency anemia; patient with hb 5.7 in March withlow iron; h/o menorrhagia, but not for some time, irregular periods; denies change in bowel habits or blood in stools, no abd complaints; last colonoscopy 2018 wnl; no abdominal operations; no asa orNSAID use; no GERD, dysphagia or early satiety; [...] swallowing difficulties, no hearing loss, no ear infection(s),no nose bleeds. Cardiovascular: normal blood pressure, no [...] virus vaccine, inactivated - Not Given [facility] Clinic[facility] on above:Result Comment: Electronically Signed By: TENA EM, Real Bentley\Date and Time Signed: 05/27/23 13:44 [id number] NoteUS SOFT TISS HEAD NECK Procedure: US SOFT TISS HEAD NECK; Date [...] by Real Marina MD on 04/21/2023 9:54 [facility] 03-30-2023 Evaluation note* Encounter Date Diagnosis Assessment Notes Treatment Notes Treatment Clinical Notes Mar, Iron deficiency anemia, unspecified iron deficiency anemia type (ICD-10 - D50.9) [employer] Other 12-14-2023 Evaluation note* Encounter Date Diagnosis [...] has monthly periods. 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 It has been several years since she was at [employer] dust[employer] in [place] Feb, Palpable mass of neck (ICD-10 - R22.1) Notes change since recent dental procedure. Agrees to US to assess LN v. salivary gland etiology. [employer] Other 11-02-2023 Evaluation note* Encounter Date Diagnosis [...] prescribed. Patient will call if problem persists. [employer] Other Evaluation + Plan note No data available for this section [facility] [place] Evaluation noteN/ADept. of Dermatology Evaluation noteNo InformationNort [employer] Other Evaluation noteNo assessment information available [facility] Work Phone: History general Narrative - Reported* Type Description Date Medical History HTN [employer] Other Hospital Discharge instructions No data available for this section [facility] [place] Progress note No data available for this section [facility] [place] Reason for referral (narrative)* Name Reason for referral NA NA Dept. of Dermatology Summary Purpose Family History No Family History Records Found Relationship Condition Age at Onset Recorded Date/T cesilia father Unknown mother Unknown Advance Directives No Advanced Directives Records Found Advance Directive Response Recorded Date/ Time Advance Directives No November 07, 2023 12:53pm Reason for Referral Reason *FU 04/06 Dr. Maty sal - hazel of iron def anemia, recent labs scanned in chart. had IV iron in the past. Diagnosis 1 Iron deficiency anem ia, unspecified iron deficiency anemia type (D50.9) Referral Organization [facility] guero Referring Provider First Name Jeanie Referring Provider Last Name Sarah Referring Provider Specialty [facility] [place] Referred Organization [facility] Referred Provider AMBAR JOSEPH Referred Address [address] [place], [place],[address] Referred Provider Specialty Hematology Referral Priority Routine General Notes Mae Pendleton 07:51:36 AM >received today, notes locked, attachments made, referral faxed. Clinical Notes p: [phone] f: [phone] Chief Complaint and Reason for Visit Chief Complaint Admit Date med refill January 27, 2024 1 1:14am Chief Complaint Admit Date med refill January 27, 2024 1 1:14am left flank pain April 05, 2024 1 0:14am Reason for Visit Admit Date Bronchitis January 27, 2024 1 1:14am Essential (primary) hypertension Novembe r 2023 11:14am Acute left flank pain April 05, 2024 10:14am Additional Source Comments INFORMATION SOURCE (unrecogn ized section and content) DATE CREATED AUTHOR 10/28/2022 [facility] DATE CREATED AUTHOR AUTHOR'S ORGANIZ ATION 04/24/2023 [facility] DATE CREATED AUTHOR AUTHOR'S ORGANIZ ATION 07/19/2023 [facility] DATE CREATED AUTHOR AUTHOR'S ORGANIZ ATION 08/06/[address] [facility] DATE CREATED AUTHOR AUTHOR'S ORGANIZ ATION 04/08/2024 [facility] REASON FOR VISIT (unrecogniz ed section and content) Possible [facility] Patient Care team informatio n (unrecognized section and content) Team Status: Active Member Role Status Dates Jeanie Smith MD Primary Care Provider Active Team Status: Active Member Role Status Dates Jeanie Smith MD Primary Care Provider Active Start: January 13, 2024 Ambar Joseph MD Attending Provider Active St art: January 13, 2024 Team Status: Inactive Member Role Status Dates Jeanie Smith MD Primary Care Provide r, Attending Provider Active Start: January 27, 2024 End: January 27, 2024 Team Status: Inactive Member Role Status Dates Jeanie Smith MD Primary Care Provide r, Attending Provider Active Start: April 05, 2024 End: April 05, 2024 Team Status: Inactive Member Role Status Dates Jeanie Smith MD Attending Provider Active St art: April 05, 2024 End: April 05, 2024 Goals (unrecognized section and content) Goals may be documented in a n alternate section FOR RECORDS PERTAINING TO PATIENTS WHO ARE [...] BE BASED ON THE PRIMARY CLINICAL RECORDS. [facility]. provides no warranty or guarantee of the accuracy or completeness of information in this document.
[2024-05-25 14:26] LABS: Basophils Absolute Auto 0.1 10^3/uL (0.0-0.1); Basophils Percent Auto 1.2 % (0.2-2.0); Eosinophils Absolute Auto 0.2 10^3/uL (0.0-0.7); Eosinophils Percent Auto 3.2 % (0.9-7.0); Hematocrit 41.9 % (36.0-48.0); Hemoglobin 14.3 g/dL (12.0-16.0); Immature Granulocytes Abs Auto 0.01 10^3/uL (0.00-0.03); Immature Granulocytes Pct Auto 0.2 % (0.0-0.5); Lymphocytes Absolute Auto 2.3 10^3/uL (1.2-3.8); Lymphocytes Percent Auto 38.6 % (20.5-60.0); Mean Corpuscular HGB Conc 34.1 g/dL (29.9-35.2); Mean Corpuscular Hemoglobin 30.8 pg (26.7-34.0); Mean Corpuscular Volume 90.1 fL (81.0-99.0); Mean Platelet Volume 12.5 fL (9.5-13.5); Monocytes Absolute Auto 0.4 10^3/uL (0.3-0.8); Monocytes Percent Auto 6.1 % (1.7-12.0); Neutrophils Absolute Auto 3.1 10^3/uL (1.4-6.5); Neutrophils Percent Auto 50.7 % (43.0-75.0); Platelet Count 201 10^3/uL (150-450); Red Blood Count 4.65 10^6/uL (4.20-5.40); Red Cell Distribution Width 11.9 % (11.0-15.0)
[2024-05-25 14:41] LABS: Anion Gap 9.9; BUN Creatinine Ratio 12.2; C Reactive Protein <0.50 mg/dL (<=0.50); Calcium 8.7 mg/dL (8.5-10.1); Chloride 106 mmol/L (98-107); Estimated GFR (African America >60 (>=60 mL/min/1.73m^2); Estimated GFR (Non-African Ame 58 (>=60 mL/min/1.73m^2); Glucose 135 mg/dL (74-106); Potassium 3.9 mmol/L (3.5-5.1); Sodium 140 mmol/L (136-145)
[2024-05-25 14:51] LABS: Erythrocyte Sedimentation Rate 23 mm/hr (<=30); Percent Iron Saturation 30.4 %
[2024-05-26 06:10] LABS: Vitamin B12 409 pg/mL (232-1245)
== END 2024-05-25 14:03 | disposition home or self-care (01) ==
LOC: LAB 14:04
PROVIDERS: PCP Family Medicine; Visit Provider Internal Medicine Hematology & Oncology
DX: D50.9 Iron deficiency anemia, unspecified (principal); K90.9 Intestinal malabsorption, unspecified
CPT/HCPCS: 36415; 80048; 82607; 82728; 83540; 83550; 85025; 85652; 86140

== ENCOUNTER 2024-05-29 07:35 | Outpatient (RCR) | payer OTHER, SELFPAY ==
--- OUTSIDE RECORDS SUMMARY | 2024-05-29 07:37 | XMS_ITS | CCD ---
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 Prasanth Walker Attending Dr. Bess Montanez Referring Unavailable Jeanie Smiht Unavailable JEANIE SMITH Referring Unavailable JEANIE SMITH [...] Attending Unavailable Jeanie Smith MD Attending Provider [phone] Jeanie Smith Attending Unavailable Jeanie Smith Admitting Unavailable Allergies Allergy Classification Reported Allergen(s) Allergy Type Date of Onset Reaction(s) Facility (1 source) No Alert Propensity to adverse reactions to drug 3 Dept. of Dermatology (1 source) No Known Medication Allergies; Translations: [No Known Medication Allergies] Propensity to adverse reactions (disorder) [facility] Repository Medications Current Medications Medication Drug [...] bacterial skin contaminants 2 Days PERFORMED BY: [place] [address] PATHOLOGIST STEM ROLLER OPERATOR YAQUELIN DUNCAN M.D. Normal [facility] Comment on above: Performed By: #### C UU #### [address] Basophils Auto (Bld) [#/Vol] on 01-13-2024 Basophils (Bld) [#/Vol] Automated basophil count 0.0-0.1 [facility] Basophils/100 WBC Auto (Bld) on 01-13-2024 Basophils/100 WBC (Bld) Automated basophil % 0.2-2.0 [facility] Eosinophils/100 WBC Auto (Bl d)on 01-13-2024 Eosinophils/100 WBC (Bld) Automated eosinophil % 0.9-7.0 [facility] Erythrocyte distribution wid th Auto (RBC) [Ratio]on 01-13-2024 Erythrocyte distribution width (RBC) [Ratio] Erythrocyte distribution width [Ratio] by Automated count 11.0-15.0 [facility] Estimated glomerular filtrat ion rate (GFR) non- Americanon 01-13-2024 GFR/1.73 sq M.predicted among non-blacks MDRD (S/P/Bld) [Vol rate/Area] Estimated glomerular filtration rate (GFR) non- >=60 mL/min/1.73m 2 [facility] Hematocrit Auto (Bld) [Volum e fraction]on 01-13-2024 Hematocrit (Bld) [Volume fraction] Hematocrit [Volume Fraction] of Blood by Automated count 36.0-48.0 [facility] Hemoglobin [Mass/volume] in Bloodon 01-13-2024 Hemoglobin (Bld) [Mass/Vol] Hemoglobin [Mass/volume] in Blood 12.0-16.0 [facility] Iron binding capacity [Mass/ volume] in Serum or Plasmaon 01-13-2024 Iron binding capacity [Mass/Vol] Iron binding capacity [Mass/volume] in Serum or Plasma 250.0-450.0 [facility] Iron saturation [Mass Fracti on] in Serum or Plasmaon 01-13-2024 Iron saturation [Mass fraction] Iron saturation [Mass Fraction] in Serum or Plasma [facility] Laboratory - Chemistry and C hemistry - challengeon 01-13-2024 Calcium [Mass/Vol] 8.9 mg/dL 8.5-10.1 [facility] Chloride [Moles/Vol] 103 mmol/L 98-107 [facility] CO2 [Moles/Vol] 29.9 mmol/L 21.0-32.0 [facility] Cobalamin (Vitamin B12) [Mass/Vol] 529 pg/mL [phone] [facility] Comment on above: Performed at: [address] [id number] Director: Francisco J Ríos PhD, Phone: [phone] Creatinine [Mass/Vol] 0.83 mg/dL 0.55-1.02 [facility] Ferritin [Mass/Vol] 747.0 ng/mL High 8.0-252.0 [facility] GFR/1.73 sq M.predicted MDRD (S/P/Bld) [Vol rate/Area] mL/min/{1.73_m2} >=60 mL/min/1.73m 2 [facility] Glucose [Mass/Vol] 95 mg/dL 74-106 [facility] Iron [Mass/Vol] 100.0 ug/dL 50.0-170.0 [facility] Potassium [Moles/Vol] 3.9 mmol/L 3.5-5.1 [facility] Sodium [Moles/Vol] 142 mmol/L 136-145 [facility] Urea nitrogen [Mass/Vol] 7.0 mg/dL 7.0-18.0 [facility] Urea nitrogen/Creatinine [Mass ratio] 8.4 mg/mg [facility] Laboratory - Hematology and Cell countson 01-13-2024 Immature granulocytes/100 WBC (Bld) 0.2 % 0.0-0.5 [facility] Leukocytes [#/volume] correc polly for nucleated erythrocytes in Blood by Automated counon 01-13-2024 WBC corrected for nucl RBC Auto (Bld) [#/Vol] Leukocytes [#/volume] corrected for nucleated erythrocytes in Blood by Automated coun 4.0-11.0 [facility] Lymphocytes Auto (Bld) [#/Vo l]on 01-13-2024 Lymphocytes (Bld) [#/Vol] Lymphocytes [#/volume] in Blood by Automated count 1.2-3.8 [facility] Lymphocytes/100 WBC Auto (Bl d)on 01-13-2024 Lymphocytes/100 WBC (Bld) Lymphocytes/100 leukocytes in Blood by Automated count 20.5-60.0 [facility] MCH Auto (RBC) [Entitic mass ]on 01-13-2024 MCH (RBC) [Entitic mass] MCH [Entitic mass] by Automated count 26.7-34.0 [facility] MCHC Auto (RBC) [Mass/Vol]on 01-13-2024 MCHC (RBC) [Mass/Vol] MCHC [Mass/volume] by Automated count 29.9-35.2 [facility] MCV Auto (RBC) [Entitic vol] on 01-13-2024 MCV (RBC) [Entitic vol] MCV [Entitic volume] by Automated count 81.0-99.0 [facility] Monocytes Auto (Bld) [#/Vol] on 01-13-2024 Monocytes (Bld) [#/Vol] Automated blood monocyte count 0.3-0.8 [facility] Monocytes/100 WBC Auto (Bld) on 01-13-2024 Monocytes/100 WBC (Bld) Automated monocyte % 1.7-12.0 [facility] Neutrophils Auto (Bld) [#/Vo l]on 01-13-2024 Neutrophils (Bld) [#/Vol] Neutrophils [#/volume] in Blood by Automated count 1.4-6.5 [facility] Neutrophils/100 WBC Auto (Bl d)on 01-13-2024 Neutrophils/100 WBC (Bld) Automated neutrophil % 43.0-75.0 [facility] No Panel Informationon 01-12 25-Hydroxy Vitamin D Total 44.1 ng/mL [facility] Comment on above: <20 ng/mL Vit D defi cient20-<30 ng/mL Vit D ypmcxihlizva34-584 ng/mL Vit D sufficient>100 ng/mL Potential Toxicity Eosinophils # (Auto) 0.2 10 3/uL 0.0-0.7 [facility] Immature Granulocyte # (Auto) 0.01 10 3/uL 0.00-0.03 [facility] Platelet mean volume Auto (B ld) [Entitic vol]on 01-13-2024 Platelet mean volume (Bld) [Entitic vol] Platelet mean volume [Entitic volume] in Blood by Automated count 9.5-13.5 [facility] Platelets Auto (Bld) [#/Vol] on 01-13-2024 Platelets (Bld) [#/Vol] Platelets [#/volume] in Blood by Automated count 150-450 [facility] RBC Auto (Bld) [#/Vol]on RBC (Bld) [#/Vol] Erythrocytes [#/volume] in Blood by Automated count 4.20-5.40 [facility] Serum or plasma anion gap de terminationon 01-13-2024 Anion gap [Moles/Vol] Serum or plasma anion gap determination [facility] Consultation Noteon 07-13-19 Consultation Note [id number] #1.00TIFF Normal [facility] Outside Colonoscopyon 2023 Outside Colonoscopy [id number] #1.00TIFF Normal [facility] Reminderson 07-07-2023 Reminders - From: Samaria Cortez LPN To: [facility] - Clinical; Sent: 07/07/2023 09:42:12 EDT Show up: 06/04/2033 07:00:00 EDT Subject: colonoscopy recall Due Date/Time: 07/05/2033 07:00:00 EDT Reminder/Recall Patient due for screening colonoscopy 07/05/2033. [facility] Lab Reportson 07-06-2023 Lab Reports [id number] #1.00TIFF [facility] Insurance Correspondenceon 0 06-23-2023 Insurance Correspondence [id number] 7#1.00TIFF Normal [facility] Consultation Noteon 06-06-19 Consultation Note [id number] #1.00TIFF [facility] Consent for Procedure/Surger yon 05-31-2023 Consent for Procedure/Surgery [id number] #1.00TIFF Normal [facility] Facesheeton 05-30-2023 Facesheet [id number] 6#1.00TIFF Normal [facility] Ambulatory Visit Summaryon 0 [...] for choosing us for your care. Normal [facility] MAMM SCREENING BILATERAL W C preparation supervisor 04-20-2023 MAMM SCREENING BILATERAL W CAD MAMM [...] AM 1 b MAMM 1 YR Normal [facility] Physician Referralon 024 Physician Referral [id number] #1.00TIFF Normal [facility] Vital Signs Date Time Vital Sign Value Performing Clinician Facility 04-05-2024 10:17-0500 Body height 152.4 cm [facility] 04-05-2024 10:17-0500 Body mass index (BMI) [Ratio] 40 kg/m2 [facility] 04-05-2024 10:17-0500 Body weight 92.98 kg [facility] 04-05-2024 10:17-0500 Diastolic blood pressure 72 mm[Hg] [facility] 04-05-2024 10:17-0500 Heart rate 66 /min [facility] 04-05-2024 10:17-0500 Systolic blood pressure 105 mm[Hg] [facility] 01-27-2024 11:18-0500 Body height 152.4 cm [facility] 01-27-2024 11:18-0500 Body mass index (BMI) [Ratio] 39.6 kg/m2 [facility] 01-27-2024 11:18-0500 Body temperature 97.9 [degF] [facility] 01-27-2024 11:18-0500 Body weight 92.07 kg [facility] 01-27-2024 11:18-0500 Diastolic blood pressure 75 mm[Hg] [facility] 01-27-2024 11:18-0500 Heart rate 79 /min [facility] 01-27-2024 11:18-0500 Systolic blood pressure 118 mm[Hg] [facility] 05-27-2023 13:14-0500 Blood Pressure Location Real MADSEN [facility] 05-27-2023 13:14-0500 Diastolic blood pressure 78 mm[Hg] Real MADSEN [facility] 05-27-2023 13:14-0500 Heart rate 76 /min Real NILL [facility] 05-27-2023 13:14-0500 Respiratory rate 16 /min Real NILL [facility] 05-27-2023 13:14-0500 Systolic blood pressure 116 mm[Hg] Real NILL [facility] 03-03-2023 11:00-0500 Body height 152.4 cm Jeanie Smith Other [facility] Other 03-03-2023 11:00-0500 Body mass index (BMI) [Ratio] 40.07 kg/m2 Jeanie Smith Other [facility] Other 03-03-2023 11:00-0500 Body weight 93.08 kg Jeanie Smith Other [facility] Other 03-03-2023 11:00-0500 Diastolic blood pressure 77 mm[Hg] Jeanie Smith Other [facility] Other 03-03-2023 11:00-0500 Systolic blood pressure 120 mm[Hg] Jeanie Smith Other [facility] Other 01-20-2023 14:00-0400 Body height 152.4 cm Jeanie Smith Other [facility] Other 01-20-2023 14:00-0400 Body mass index (BMI) [Ratio] 40.23 kg/m2 Jeanie Smith Other [facility] Other 01-20-2023 14:00-0400 Body weight 93.44 kg Jeanie Smith Other [facility] Other 01-20-2023 14:00-0400 Diastolic blood pressure 73 mm[Hg] Jeanie Smith Other [facility] [email or web address] Other 01-20-2023 14:00-0400 Systolic blood pressure 116 mm[Hg] Jeanie Smith Other [place] [employer] Other 1965 23:00-0500 >na< Prasanth Walker Dept. of Dermato logy Encounters Encounter Date Encounter Type Care Provider Facility Start: 04-05-2024 End: 04-05-2024 Departed Referred Jeanie Smith MD Work Phone: [facility] [place] Work Phone: Start: 04-05-2024 End: 04-05-2024 ambulatory Jeanie Smith [facility] Work Phone: Start: 04-05-2024 End: 04-05-2024 Patient encounter procedure [facility] Work Phone: Start: 01-27-2024 End: 01-27-2024 ambulatory [facility] Work Phone: Start: 01-27-2024 End: 01-27-2024 Patient encounter procedure [facility] Work Phone: Start: 01-13-2024 Non-patient / Non-visit [facility] Physician [facility] [employer] Work Phone: Start: 08-04-2023 End: 08-04-2023 ambulatory BESS Perez PETOMERI Not Available Start: 07-25-2023 End: 07-25-2023 ambulatory MESSI SHORTY Not Available Start: 07-06-2023 End: 07-07-2023 ambulatory Real MADSEN Facility:[id number] Start: 06-22-2023 End: 06-22-2023 ambulatory MESSI SHORTY Not Available Start: 05-27-2023 End: 05-28-2023 ambulatory Real MADSEN Facility:[facility] Start: 05-27-2023 End: 05-27-2023 Patient encounter procedure Real Wilkerson TENA [facility] Start: 04-20-2023 End: 04-21-2023 ambulatory JEANIE Slime SARAH [facility] Start: 04-13-2023 End: 04-21-2023 ambulatory JEANIE Palencia SARAH [facility] Start: 04-08-2023 End: 04-08-2023 ambulatory Jeanie Smith Other [facility] Other Start: 04-08-2023 Telephone [address] Smith [facility] Start: 04-05-2023 ambulatory AMBAR JOSEPH Facility [facility] Start: 03-30-2023 End: 03-30-2023 ambulatory Jeanie Sarah Other [facility] Other Start: 03-30-2023 Telephone encounter Jeanie Sarah [facility] Start: 03-03-2023 End: 03-03-2023 ambulatory Jeanie Smith Other [facility] Other Start: 03-03-2023 Encounter for genera l adult medical examination without abnormal findings Jeanie Sarah [facility] Start: 03-03-2023 Periodic preventive med est patient 40-[address]yrs [address] [facility] Start: 01-20-2023 End: 01-20-2023 ambulatory Jeanie Smith Other [facility] Other Start: 01-20-2023 Office outpatient ne w [address] [facility] Start: 10-27-2022 Prasanth Walker Dept. of [...] identified in Urine by Culture Urine Culture [facility] Start: 04-05-2024 End: 04-05-2024 Urine culture [facility] Immunizations Immunization Date Immunization Notes Care Provider Fa cili 1965 pneumococcal conjugate vaccine, 7 valent Prasanth Walker Dept. of Dermatology NEGATED: Highlighted row has not occurred!05-27-2023 influenza virus vaccine, unspecified formulation Real MADSEN [facility] Payers Date Payer Category Payer Self-pay 2022 Unknown [id number] 1965 Unknown [id number] 1965 Unknown [id number] 2.16.8 [id number] 1965 Unknown [id number] 2.16.8 [id number] 1965 Unknown [id number] 2.16.8 [id number] 1965 Unknown [id number] 2.16.8 [id number] 1965 Unknown [id number] 2.16.8 [id number] 1965 Unknown [id number] 2.16.8 [id number] 1965 Unknown [id number] 2.16.84 [id number] 1965 Unknown [id number] 2.16.84 [id number] 1965 Unknown [id number] 2.16.84 [id number] Unknown [id number] 2.16.8 [id number] Social History Date Type Detail Facility Start: 10-27-2022 Dept. of D ermatology Start: 1965 End: 1965 Sex Assigned At Female [facility] Sex Assigned At [facility] Start: 05-27-2023 End: 01-27-2024 Tobacco smoking status Never smoked tobacco (finding) [facility] Tobacco smoking status Never [facility] Start: 01-27-2024 End: 04-06-2024 Sex Female (finding) [facility] Goals Date Patient Goal Desired Activity /State Functional Status Date Assessment Result Facility 05-27-2023 Functional Status N/A [facility] Clinical Notes 01-20-2023 to 01-27-2024 Note Date & Type Note Facility 01-27-2024 Evaluation note Diagnosis Onset Date Resolution Bronchitis acute January 27, 2024 11:14am Essential (primary) hypertension acute January 26 11:14am Acute left flank pain acute Mar 10:14am [facility] Work Phone: 1(591) 637-129803-08-2024 NoteChief Complaint consultation for anemia HPI Staff [...] virus vaccine, inactivated - Not Given [facility]Result Comment: Electronically Signed By: TENA EM, Real Bentley\Date and Time Signed: 05/27/23 13:44 [id number] NoteUS SOFT TISS HEAD NECK Procedure: US [...] by Real Marina MD on 04/21/2023 9:54 [facility] 03-30-2023 Evaluation note* Encounter Date Diagnosis Assessment Notes Treatment Notes Treatment Clinical Notes Mar, Iron deficiency anemia, unspecified iron deficiency anemia type (ICD-10 - D50.9) [facility] Other 12-14-2023 Evaluation note* Encounter Date Diagnosis [...] has monthly periods. Encouraged regular followup w TRANSPORTATION ENGINEER for assessment of this. 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 Agrees to US to assess LN v. salivary gland etiology. [facility] Other 11-02-2023 Evaluation note* Encounter Date Diagnosis [...] prescribed. Patient will call if problem persists. [facility] Other Evaluation + Plan note No data available for this section [facility] Evaluation noteN/ADept. of Dermatology Evaluation noteNo InformationNort [employer] Other Evaluation noteNo assessment information available [facility] Work Phone: History general Narrative - Reported* Type Description Date Medical History HTN [facility] Other Hospital Discharge instructions No data available for this section [facility] Progress note No data available for this section [facility] Reason for referral (narrative)* Name Reason for [...] iron deficiency anemia type (D50.9) Referral Organization [facility] guero Referring Provider First Name Jeanie Referring Provider Last Name Sarah Referring Provider Specialty Family [facility] Referred Organization [facility] Referred Provider AMBAR JOSEPH Referred Address [address] [place], [place],[address] Referred Provider Specialty Hematology Referral Priority Routine General Notes Mae Pendleton 07:51:36 AM >received today, notes locked, attachments made, referral faxed. Clinical Notes p: [phone] f: [phone] Chief Complaint and Reason for Visit Chief [...] section and content) DATE CREATED AUTHOR 10/28/2022 [facility] DATE CREATED AUTHOR AUTHOR'S ORGANIZ ATION 04/24/2023 [facility] DATE CREATED AUTHOR AUTHOR'S ORGANIZ ATION 07/19/2023 [facility] DATE CREATED AUTHOR AUTHOR'S ORGANIZ ATION 08/06/2023 [facility] DATE CREATED AUTHOR AUTHOR'S ORGANIZ ATION 04/08/2024 [facility] REASON FOR VISIT (unrecogniz ed [...] BE BASED ON THE PRIMARY CLINICAL RECORDS. [facility] [employer] [facility]. provides no warranty or guarantee of the accuracy or completeness of information in this document.
== END 2024-05-30 08:03 | disposition home or self-care (01) ==
LOC: HEMC 07:35
PROVIDERS: PCP Family Medicine; Visit Provider Internal Medicine Hematology & Oncology
DX: D50.9 Iron deficiency anemia, unspecified (principal); K90.9 Intestinal malabsorption, unspecified; Z80.0 Family history of malignant neoplasm of digestive organs
CPT/HCPCS: G0463